=== PATIENT | female | born 1970 | race Caucasian/White ===

== ENCOUNTER 2020-10-06 12:03 | Inpatient (IN) | payer MEDICAID, SELFPAY ==
--- NOTE | ~2020-10-06 | CT_ITS ---
EXAMINATION: CT ANGIOGRAM HEAD CT ANGIOGRAM NECK CLINICAL INFORMATION: Lacunar infarct. COMPARISON: CT head from 10/06/2020. TECHNIQUE: Initial noncontrast explosive technician imaging of the head and neck was performed. Comparison is made with noncontrast head CT from earlier today. Test bolus sequences followed by intravenous administration 70 mL of Omnipaque 350. Helical imaging was performed in the axial plane from the aortic arch to the skull vertex. Delayed postcontrast imaging of the head was also performed. The data was processed at the certified cytotechnologist's workstation for generation of MIP sequences. Angled MIPs and volume rendered reformatted images were also generated at an offline 3D workstation. Stenoses are assessed in accordance with NASCET criteria unless otherwise indicated. This CT examination was performed using dose optimization techniques as appropriate, variously including the following: *Automated exposure control. *Adjustment of mA and/or kV according to patient size (this includes techniques or standardized protocols for targeted exams where dose is matched to indication/reason for exam; i.e. extremities or head). *Use of iterative reconstruction technique. DLP: 1509 mGy-cm FINDINGS: CT Head: There is no evidence of acute intracranial hemorrhage or edematous territorial infarction. Scattered hypoattenuation in the periventricular and deep white matter are consistent with moderate microangiopathy. Redemonstrated within the left greater than right lentiform nuclei and right caudate body. No new loss of moran-white matter differentiation. The ventricles are normal in size and configuration. No evidence for obstructive hydrocephalus. The sella turcica is expanded and partially empty. No additional abnormal mass effect or midline shift. No extra-axial fluid collections. No pathologic intra-axial enhancement or regional oligemia. No acute soft tissue or osseous abnormalities. Mild mucosal thickening of the paranasal sinuses. The mastoid air cells and middle ear cavities are clear The mastoid air cells and paranasal sinuses are clear. The maxillary teeth are absent. CT Neck: The thyroid gland and remaining cervical soft tissues are within normal limits. Reversal the normal cervical lordosis centered on C5. Moderate degenerative disc disease at C4-C5 and C5-C6. CT Upper Chest: The visualized lung apices and upper mediastinum are within normal limits. Neck CTA: Aortic Arch: Normal contour and caliber. Two vessel branching pattern of the arch with left common carotid artery arising from the brachiocephalic trunk. Great Vessel Origins: No significant stenosis of the branch origins. Right Common Carotid Artery: No focal stenosis or occlusion. Cervical Right Internal Carotid Artery: Mild calcific atherosclerotic disease of the carotid bulb and proximal internal carotid artery without flow-limiting stenosis. Left Common Carotid Artery: No focal stenosis or occlusion. Cervical Left Internal Carotid Artery: Mild calcific atherosclerotic disease of the carotid bulb and proximal internal carotid artery without flow-limiting stenosis. Retropharyngeal course. Cervical Right Vertebral Artery: No focal stenosis or occlusion. Cervical Left Vertebral Artery: Dominant. No focal stenosis or occlusion. Brain CTA: Intracranial Internal Carotid Arteries: Calcific atherosclerotic disease of the intracranial internal carotid arteries without occlusion or flow-limiting stenosis. No focal stenosis or occlusion. Right Anterior Cerebral Artery: Normal A1 segment. Normal opacification of the distal KIKO segments. Left Anterior Cerebral Artery: Normal A1 segment. Normal opacification of the distal KIKO segments. Anterior Communicating Artery: Normal. Right Middle Cerebral Artery: Normal M1 segment of the MCA without focal stenosis or occlusion. Normal arborization of the distal segments. Left Middle Cerebral Artery: Normal M1 segment of the MCA without focal stenosis or occlusion. Normal arborization of the distal segments. Right Vertebral Artery: Normal V4 segment. Normal opacification of the proximal segments of the posterior inferior cerebellar artery. Left Vertebral Artery: Normal V4 segment. Normal opacification of the proximal segments of the posterior inferior cerebellar artery. Basilar Artery: Normal without focal stenosis or occlusion. Normal appearance of the proximal superior cerebellar arteries. Right Posterior Cerebral Artery: Normal P1 segment. Moderate irregular narrowings of the P2 and P3 segments. Left Posterior Cerebral Artery: Mild irregular narrowings of the P1 segment. Moderate multifocal irregular narrowings of the P2 and P3 segments. Normal opacification of the superior sagittal, straight, transverse, and sigmoid sinuses. CT/CT angio head neck stroke IMPRESSION: 1. No evidence of acute intracranial hemorrhage or edematous territorial infarction. 2. Moderate underlying microangiopathy. Lacunar infarcts of the left greater than right lentiform nuclei and left caudate body remain age-indeterminate. 3. CTA of the head and neck without proximal occlusion. 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
--- NOTE | ~2020-10-06 | CT_ITS ---
EXAMINATION: CT HEAD WITHOUT CONTRAST CLINICAL INFORMATION: Dizziness for 3 days COMPARISON: None TECHNIQUE: Contiguous axial imaging was performed from the skull base to vertex without intravenous administration of contrast. This CT examination was performed using dose optimization techniques as appropriate, variously including the following: *Automated exposure control *Adjustment of mA and/or kV according to patient size (this includes techniques or standardized protocols for targeted exams where dose is matched to indication/reason for exam; i.e. extremities or head) *Use of iterative reconstruction technique DLP: 715 mGy-cm FINDINGS: There is no evidence of an extra-axial collection. There is no evidence of intra-axial or extra-axial hemorrhage. The ventricles and extra-axial CSF spaces are appropriate. There is nonspecific periventricular white matter disease. There is a left basal ganglia lacunar infarct in the lentiform nucleus that appears old axial image 27 series 2. There is a second left basal ganglia lobe lacunar infarct in the more inferior lentiform nucleus axial image 21 series 2 questionable for more recent infarct There is low-attenuation in the left caudate lobe questionable for a more recent lacunar infarct axial image 30 series 2. No mass or mass effect is seen. Review of bone windows is normal. Visualized paranasal sinuses, mastoid air cells and middle ears are clear. CT/CT head/brain wo con IMPRESSION: Left basal ganglia lacunar infarcts, one of which appears old. The other 2 may be more recent. This could be better assessed with brain MRI if clinically indicated. Nonspecific periventricular white matter disease.
--- NOTE | ~2020-10-06 | XR_ITS ---
EXAMINATION: XR CHEST CLINICAL INFORMATION: Cough x3 days. COMPARISON: None TECHNIQUE: 2 views of the chest were obtained. FINDINGS: No significant abnormality is noted involving the heart, lungs, mediastinum, bony thorax or soft tissues. XR/XR chest 2V IMPRESSION: Unremarkable chest x-ray.
[2020-10-06 12:12] VITALS: BP 141/86; PULSE 87; RESP 20; TEMP 36.6; O2SAT 96; BMI 43.9
[2020-10-06 12:38] LABS: COVID-19 Test Negative (Negative)
--- NOTE | 2020-10-06 13:07 | ED_ITS ---
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 Mode of arrival: ambulatory Limitations: no limitations Related Data Allergies Allergy/AdvReac Type Severity Reaction Status Date / Time No Known Allergies Allergy Unverified 01/07/20 19:37 [No Known Allergies*] [facility] Past Medical History Medical History (Updated 10/06/20 @ 12:14 by Rich Conrad) Asthma HTN (hypertension) Social History Social History Advance Directives: Yes Advance Directives Information Provided: Yes Advance Directives on File: No Patient : No Physical Exam Vital Signs: Vital Signs: Last Vital Signs Temp 97.8 F 10/06/20 12:12 Pulse 87 10/06/20 12:12 Resp 20 10/06/20 12:12 BP 141/86 H 10/06/20 12:12 Pulse Ox 96 10/06/20 12:12 Body Mass Index 43.9 MDM - Dizziness Lab Data Labs: Lab Results 10/06/20 Range/Units 12:15 COVID-19 (LUPE) Negative (Negative) COVID-19 Clin Com See Note
--- NOTE | 2020-10-06 13:39 | ECG_ITS ---
Test Reason : DIZZINESS Blood Pressure : / mmHG Vent. Rate : 077 BPM Atrial Rate : 077 BPM P-R Int : 162 ms QRS Dur : 098 ms QT Int : 404 ms P-R-T Axes : 040 003 066 degrees QTc Int : 457 ms Normal sinus rhythm Nonspecific T wave abnormality Abnormal ECG When compared with ECG of 31-MAR-2019 00:00, Nonspecific T wave abnormality now evident in Anterior leads Referred By: Estephania Morales Electronically Signed By:MACK MIRANDA
[2020-10-06 14:00] VITALS: PULSE 85; RESP 18; O2SAT 97
[2020-10-06 14:22] LABS: MANUAL DIFF FLAG NO
[2020-10-06 14:24] LABS: Basophils Absolute Auto 0.1 X10*3/uL (0.0-0.2); Basophils Percent Auto 0.7 % (0-2); Eosinophils Absolute Auto 0.1 X10*3/uL (0.0-0.4); Eosinophils Percent Auto 1.4 % (0-4); Hematocrit 37.8 % (37-47); Hemoglobin 12.3 g/dl (12.0-16.0); Imm Gran Abs Auto 0.02 X10*3/uL (0.00-0.03); Imm Gran Pct Auto 0.2 % (0.0-0.4); Lymphocytes Absolute Auto 2.5 X10*3/uL (1.2-4.9); Lymphocytes Percent Auto 30.4 % (20-40); Mean Corpuscular HGB Conc 32.5 g/dl (31.0-35.0); Mean Corpuscular Volume 86.1 fL (80-98); Mean Platelet Volume 10.3 fL (9.4-12.3); Monocytes Absolute Auto 0.6 X10*3/uL (0.1-1.2); Monocytes Percent Auto 7.4 % (2-11); Neutrophils Percent Auto 59.9 % (45-73); Platelet Count 253 X10*3/uL (160-400); Red Blood Count 4.39 X10*6/uL (4.20-5.50); Red Cell Distribution Width 14.2 % (11.0-16.0); White Blood Count 8.3 X10*3/uL (4.8-10.8)
[2020-10-06 14:32] LABS: INTERNATIONAL NORM RATIO 1.1 (0.9-1.1); Prothrombin Time 12.9 SEC (10.8-13.0)
[2020-10-06 14:37] LABS: D Dimer < 200 NG/ML
[2020-10-06 14:53] LABS: Alanine Aminotransferase 18 U/L (0-31); Alkaline Phosphatase 76 U/L (39-117); Anion Gap 11 (12-20); Aspartate Amino Transferase 14 U/L (5-31); Bilirubin Total 0.3 mg/dL (0.0-1.0); Blood Urea Nitrogen 19 mg/dL (9-16); Calcium 9.3 mg/dL (8.4-10.2); Carbon Dioxide 30 mmol/L (22-29); Chloride 104 mmol/L (96-108); Creatinine Clr Calc Pharmacy 95.2; Estimated Glomerular Filt Rate > 60; Glucose Random 114 mg/dL (60-115); Magnesium 1.9 mg/dL (1.6-2.6); Potassium 3.5 mmol/L (3.3-5.1); Sodium 141 mmol/L (135-145); Total Protein 7.4 g/dL (6.5-8.0)
[2020-10-06 14:58] LABS: B Type Natriuretic Peptide 15 pg/mL (<100); Troponin-I High Sensitivity 3.9 ng/L (<3.5-17.0)
--- NOTE | 2020-10-06 15:15 | ED.DIZZY ---
HPI - Dizziness General Chief Complaint: Dizziness Stated Complaint: bad cough, dizziness Time Seen by Provider: 10/06/20 13:07 Source: patient Mode of arrival: ambulatory Limitations: no limitations History of Present Illness HPI Narrative: 50-year-old female with a past medical history of hypertension asthma presenting to the ED with complaints of dizziness, dry cough, shortness of breath and dyspnea on exertion constantly for the past 3 days. Reports that she was seen at [facility] yesterday the day before and had a workup although did not have a CT scan of her brain and was discharged. Then she called her PCP and explain her symptoms to her PCP and her PCP told her to come to the emergency department again for further evaluation treatment again. Patient denies any other symptoms complaints or concerns at this time. MD elicited complaint: dizziness Onset (ago): day(s) (Three days) Timing: gradual onset and constant Severity: mild Description: lightheadedness History of similar symptoms: No Exacerbating factors: movement/ambulation Relieving factors: nothing Associated symptoms: denies other symptoms Related Data Allergies Allergy/AdvReac Type Severity Reaction Status Date / Time No Known Allergies Allergy Unverified 01/07/20 19:37 [No Known Allergies*] Review of Systems Review of Systems: Constitutional : No Fever, No Chills, No Night Sweats, No Fatigue, No Malaise ENT/Mouth : No Ear Pain, No Nasal Congestion, No Sinus Pain, No sore throat, No Rhinorrhea Eyes: No Eye Pain, No Swelling, No Redness, No Foreign Body, No Discharge, No Vision Changes Cardiovascular : Positive SOB/TIDWELL, No Chest Pain, No Orthopnea, No Palpitations Respiratory : Positive Cough, No Sputum, No Wheezing, No Dyspnea Gastrointestinal : No Nausea, No Vomiting, No Diarrhea, No Constipation, No abdominal Pain, No Hematochezia, No Melena Genitourinary : No Dysuria, No Urinary Frequency, No Urinary Incontinence, No Urgency, No Flank Pain Musculoskeletal : No joint pain, No Myalgias Skin : No lacerations Neuro : Positive Dizziness, No Focal weakness, no general weakness, No Numbness, No Paresthesias, No Loss of Consciousness, No Dizziness, No Headache Yes all other systems are reviewed and are negative [facility] Past Medical History Attestation statement: The following information was validated with the patient. Medical History Asthma HTN (hypertension) Social History Social History Advance Directives: Yes Advance Directives Information Provided: Yes Advance Directives on File: No Patient : No Physical Exam Vital Signs: Vital Signs: Last Vital Signs Temp 97.8 F 10/06/20 12:12 Pulse 87 10/06/20 12:12 Resp 20 10/06/20 12:12 BP 141/86 H 10/06/20 12:12 Pulse Ox 96 10/06/20 12:12 Body Mass Index 43.9 Vital signs have been reviewed as normal and appeared to be correct. Blood pressure normal. Heart rate normal. Respiration rate normal. Temperature normal. Oxygen saturation normal. Appearance: Alert. Oriented X3. No acute distress. Head: Normal external exam. Normocephalic. Atraumatic. Able to rotate head bilaterally. Eyes: PERRLA. EOMI. No nystagmus noted. Conjunctiva and sclera normal. Eyelids normal. Corneal reflex normal. ENT: EAC normal. TM's Normal. Hearing normal. Pharynx normal. Uvula midline. tongue midline. Moist mucous membranes. No trismus noted. No drooling noted. No muffled voice noted. No nystagmus noted. Neck: Normal inspection. Neck supple. FROM. No adenopathy. Trachea midline. Thyroid Normal. No meningeal signs. No neck mass noted. CVS: Normal heart rate and rhythm. Heart sound normal. No murmurs noted. Pulses normal throughout. Respiratory: No respiratory distress. Painless inspiration. Breath sounds normal. No wheezes/rales/rhonchi noted. Chest nontender. No accessory muscle usage noted or decreased air movement noted. Abdomen: Soft and nontender. Bowel sounds normal in all 4 quadrants. No distention noted. No organomegaly noted. No visible injury noted. Back: No CVA tenderness. Full range of motion noted. Skin: Skin warm and dry. Normal skin color. Normal skin turgor. No rashes/lesions/lacerations noted. Extremities: No lower extremity edema. Extremities exhibit normal range of motion. Extremities nontender. Able to shrug shoulders bilaterally and keep up against resistance. Neuro: Oriented X 3. No motor deficit. No sensory deficit. Reflexes normal. Moving all extremities. No focal motor deficits. Cranial nerves II-XI intact bilaterally. Facial strength normal. Normal cognition. Speech normal. Gait normal. Strength 5/5 throughout. No pronator drift. No tremor noted. No fasciculations noted. No rigidity noted. Muscle tone normal throughout. No asterixis noted. [id number] test normal. Heel to mcdonald test normal. Tandem gait normal. Does not sway with eyes open. Romberg test negative. Rapid alternating movement upper extremity normal. Rapid alternating movement lower extremity normal. Hand drop from overhead Misses face. NIHSS score 0. Course Course Course Narrative: 13:55pm - 50-year-old female presenting to the ED with complaints of dizziness, dry cough, shortness of breath and dyspnea on exertion constantly for the past 3 days. Plan: Labs, CT scan of brain, chest x-ray, EKG, orthostatic vitals then re-evaluate. Reevaluation(s) Reevaluation #1: - all labs within normal limits. D-dimer is negative. Troponin is negative. COVID swab negative. EKG is normal no acute ischemic changes are noted. - chest x-ray within normal limits no acute processes noted. - patient pending CT scan of brain Time: 16:43 [facility] - Dizziness Medical Records Attestation: I reviewed the patient's medical records. Lab Data Attestation: I reviewed the patient's lab results. Result diagrams: 10/06/20 14:17 10/06/20 14:17 Labs: Lab Results 10/06/20 10/06/20 10/06/20 Range/Units 12:15 14:17 14:17 WBC 8.3 (4.8-10.8) X10*3/uL RBC 4.39 (4.20-5.50) X10*6/uL Hgb 12.3 (12.0-16.0) g/dl Hct 37.8 (37-47) % MCV 86.1 (80-98) fL MCH 28.0 (27.0-33.0) pg MCHC 32.5 (31.0-35.0) g/dl RDW 14.2 (11.0-16.0) % Plt Count 253 (160-400) X10*3/uL MPV 10.3 (9.4-12.3) fL Immature Gran % (Auto) 0.2 (0.0-0.4) % Neut % (Auto) 59.9 (45-73) % Lymph % (Auto) 30.4 (20-40) % [place] % (Auto) 7.4 (2-11) % Eos % (Auto) 1.4 (0-4) % Baso % (Auto) 0.7 (0-2) % Lymph # (Auto) 2.5 (1.2-4.9) X10*3/uL [place] # (Auto) 0.6 (0.1-1.2) X10*3/uL Eos # (Auto) 0.1 (0.0-0.4) X10*3/uL Baso # (Auto) 0.1 (0.0-0.2) X10*3/uL Abs Immat Gran (auto) 0.02 (0.00-0.03) X10*3/uL Absolute Neuts (auto) 5.0 (2.0-8.3) X10*3/uL Absolute Nucleated RBC 0.000 (0.0-0.012) X10*3/uL Nucleated RBC % (auto) 0.0 (0.0-0.2) /100WBC PT (10.8-13.0) SEC INR (0.9-1.1) D-Dimer NG/ML Sodium (135-145) mmol/L Potassium (3.3-5.1) mmol/L Chloride (96-108) mmol/L Carbon Dioxide (22-29) mmol/L Anion Gap (12-20) BUN (9-16) mg/dL Creatinine (0.5-1.4) mg/dL Estim Creat Clear Calc Estimated GFR Random Glucose (60-115) mg/dL Calcium (8.4-10.2) mg/dL Magnesium 1.9 (1.6-2.6) mg/dL Total Bilirubin (0.0-1.0) mg/dL AST (5-31) U/L ALT (0-31) U/L Alkaline Phosphatase (39-117) U/L Troponin I High Sens (<3.5-17.0) ng/L B-Natriuretic Peptide (<100) pg/mL Total Protein (6.5-8.0) g/dL Albumin (3.5-5.0) g/dL COVID-19 (LUPE) Negative (Negative) COVID-19 Clin Com See Note 10/06/20 10/06/20 10/06/20 Range/Units 14:17 14:17 14:17 WBC (4.8-10.8) X10*3/uL RBC (4.20-5.50) X10*6/uL Hgb (12.0-16.0) g/dl Hct (37-47) % MCV (80-98) fL MCH (27.0-33.0) pg MCHC (31.0-35.0) g/dl RDW (11.0-16.0) % Plt Count (160-400) X10*3/uL MPV (9.4-12.3) fL Immature Gran % (Auto) (0.0-0.4) % Neut % (Auto) (45-73) % Lymph % (Auto) (20-40) % [place] % (Auto) (2-11) % Eos % (Auto) (0-4) % Baso % (Auto) (0-2) % Lymph # (Auto) (1.2-4.9) X10*3/uL [place] # (Auto) (0.1-1.2) X10*3/uL Eos # (Auto) (0.0-0.4) X10*3/uL Baso # (Auto) (0.0-0.2) X10*3/uL Abs Immat Gran (auto) (0.00-0.03) X10*3/uL Absolute Neuts (auto) (2.0-8.3) X10*3/uL Absolute Nucleated RBC (0.0-0.012) X10*3/uL Nucleated RBC % (auto) (0.0-0.2) /100WBC PT 12.9 (10.8-13.0) SEC INR 1.1 (0.9-1.1) D-Dimer < 200 NG/ML Sodium 141 (135-145) mmol/L Potassium 3.5 (3.3-5.1) mmol/L Chloride 104 (96-108) mmol/L Carbon Dioxide 30 H (22-29) mmol/L Anion Gap 11 L (12-20) BUN 19 H (9-16) mg/dL Creatinine 0.76 (0.5-1.4) mg/dL Estim Creat Clear Calc 95.2 Estimated GFR > 60 Random Glucose 114 (60-115) mg/dL Calcium 9.3 (8.4-10.2) mg/dL Magnesium (1.6-2.6) mg/dL Total Bilirubin 0.3 (0.0-1.0) mg/dL AST 14 (5-31) U/L ALT 18 (0-31) U/L Alkaline Phosphatase 76 (39-117) U/L Troponin I High Sens 3.9 (<3.5-17.0) ng/L B-Natriuretic Peptide 15 (<100) pg/mL Total Protein 7.4 (6.5-8.0) g/dL Albumin 4.0 (3.5-5.0) g/dL COVID-19 (LUPE) (Negative) COVID-19 Clin Com Imaging Data Chest x-ray: Attestation: I personally reviewed and interpreted this imaging study as follows: Radiologist's impression: FINDINGS: No significant abnormality is noted involving the heart, lungs, mediastinum, bony thorax or soft tissues. XR/XR chest 2V IMPRESSION: Unremarkable chest x-ray. ECG Data Attestation: I personally reviewed and interpreted this ECG as follows: ECG interpretation date: 10/06/20 ECG interpretation time: 14:34 Interpretation: Normal sinus rhythm and circulated 77 with a normal LA interval normal QRS duration and nonspecific T-wave abnormalities. No acute ischemic changes are noted. Similar compared to prior EKG 03/31/2019.
[2020-10-06 15:17] VITALS: BP 167/78; PULSE 78
[2020-10-06] MEDS: 0.9 % Sodium Chloride 1,000 ML 999 ML IVCONT (15:52)
--- NOTE | 2020-10-06 17:51 | ED.DIZZY ---
HPI - Dizziness General Chief Complaint: Dizziness Stated Complaint: bad cough, dizziness Time Seen by Provider: 10/06/20 13:07 Source: patient Mode of arrival: ambulatory Limitations: no limitations History of Present Illness Severity: mild Exacerbating factors: movement/ambulation Relieving factors: nothing Related Data Allergies Allergy/AdvReac Type Severity Reaction Status Date / Time No Known Allergies Allergy Unverified 01/07/20 19:37 [No Known Allergies*] [facility] Past Medical History Medical History Asthma HTN (hypertension) Social History Social History Advance Directives: Yes Advance Directives Information Provided: Yes Advance Directives on File: No Patient : No Physical Exam Vital Signs: Vital Signs: Last Vital Signs Temp 97.8 F 10/06/20 12:12 Pulse 85 10/06/20 14:00 Resp 18 10/06/20 14:00 BP 141/86 H 10/06/20 12:12 Pulse Ox 97 10/06/20 14:00 Body Mass Index 43.9 Course Course Course Narrative: Sign-out from Kathie ISAACS. Please refer to her note for full H&P. After reviewing the CT scan, she has had multiple lacunar infarcts, 1 is old however she has had the symptoms for 3 days, question of new infarcts order for MRI at this time. 6:[address] Gutierrez, he was updated that we were unable to obtain MRI due to patient's body habitus. Plan is to admit, neuro eval tomorrow. Patient admitted by hospitalist for lacunar infarct. CTA ordered per hospitalist request. Discussion with radiologist 1 CTA was completed. MDM - Dizziness Differential Diagnosis Differential diagnosis: Likely adverse reaction to drug, benign paroxysmal positional vertigo, orthostatic hypotension, vertebral basilar insufficiency, cerebrovascular accident and transient cerebral ischemia Medical Records Attestation: I reviewed the patient's medical records. Lab Data Attestation: I reviewed the patient's lab results. Result diagrams: 10/06/20 14:17 10/06/20 14:17 Labs: Lab Results 10/06/20 10/06/20 10/06/20 Range/Units 12:15 14:17 14:17 WBC 8.3 (4.8-10.8) X10*3/uL RBC 4.39 (4.20-5.50) X10*6/uL Hgb 12.3 (12.0-16.0) g/dl Hct 37.8 (37-47) % MCV 86.1 (80-98) fL MCH 28.0 (27.0-33.0) pg MCHC 32.5 (31.0-35.0) g/dl RDW 14.2 (11.0-16.0) % Plt Count 253 (160-400) X10*3/uL MPV 10.3 (9.4-12.3) fL Immature Gran % (Auto) 0.2 (0.0-0.4) % Neut % (Auto) 59.9 (45-73) % Lymph % (Auto) 30.4 (20-40) % [place] % (Auto) 7.4 (2-11) % Eos % (Auto) 1.4 (0-4) % Baso % (Auto) 0.7 (0-2) % Lymph # (Auto) 2.5 (1.2-4.9) X10*3/uL [place] # (Auto) 0.6 (0.1-1.2) X10*3/uL Eos # (Auto) 0.1 (0.0-0.4) X10*3/uL Baso # (Auto) 0.1 (0.0-0.2) X10*3/uL Abs Immat Gran (auto) 0.02 (0.00-0.03) X10*3/uL Absolute Neuts (auto) 5.0 (2.0-8.3) X10*3/uL Absolute Nucleated RBC 0.000 (0.0-0.012) X10*3/uL Nucleated RBC % (auto) 0.0 (0.0-0.2) /100WBC PT (10.8-13.0) SEC INR (0.9-1.1) D-Dimer NG/ML Sodium (135-145) mmol/L Potassium (3.3-5.1) mmol/L Chloride (96-108) mmol/L Carbon Dioxide (22-29) mmol/L Anion Gap (12-20) BUN (9-16) mg/dL Creatinine (0.5-1.4) mg/dL Estim Creat Clear Calc Estimated GFR Random Glucose (60-115) mg/dL Calcium (8.4-10.2) mg/dL Magnesium 1.9 (1.6-2.6) mg/dL Total Bilirubin (0.0-1.0) mg/dL AST (5-31) U/L ALT (0-31) U/L Alkaline Phosphatase (39-117) U/L Troponin I High Sens (<3.5-17.0) ng/L B-Natriuretic Peptide (<100) pg/mL Total Protein (6.5-8.0) g/dL Albumin (3.5-5.0) g/dL Urine Color Urine Appearance Urine pH (5.0-8.0) Ur Specific [place] (1.005-1.025) Urine Protein (NEG-TRACE) MG/DL Urine Glucose (UA) (NEG) MG/DL Urine Ketones (NEG) MG/DL Urine Blood (NEG) Urine Nitrite (NEG) Ur Leukocyte Esterase (NEG) COVID-19 (LUPE) Negative (Negative) COVID-19 Clin Com See Note 10/06/20 10/06/20 10/06/20 Range/Units 14:17 14:17 14:17 WBC (4.8-10.8) X10*3/uL RBC (4.20-5.50) X10*6/uL Hgb (12.0-16.0) g/dl Hct (37-47) % MCV (80-98) fL MCH (27.0-33.0) pg MCHC (31.0-35.0) g/dl RDW (11.0-16.0) % Plt Count (160-400) X10*3/uL MPV (9.4-12.3) fL Immature Gran % (Auto) (0.0-0.4) % Neut % (Auto) (45-73) % Lymph % (Auto) (20-40) % [place] % (Auto) (2-11) % Eos % (Auto) (0-4) % Baso % (Auto) (0-2) % Lymph # (Auto) (1.2-4.9) X10*3/uL [place] # (Auto) (0.1-1.2) X10*3/uL Eos # (Auto) (0.0-0.4) X10*3/uL Baso # (Auto) (0.0-0.2) X10*3/uL Abs Immat Gran (auto) (0.00-0.03) X10*3/uL Absolute Neuts (auto) (2.0-8.3) X10*3/uL Absolute Nucleated RBC (0.0-0.012) X10*3/uL Nucleated RBC % (auto) (0.0-0.2) /100WBC PT 12.9 (10.8-13.0) SEC INR 1.1 (0.9-1.1) D-Dimer < 200 NG/ML Sodium 141 (135-145) mmol/L Potassium 3.5 (3.3-5.1) mmol/L Chloride 104 (96-108) mmol/L Carbon Dioxide 30 H (22-29) mmol/L Anion Gap 11 L (12-20) BUN 19 H (9-16) mg/dL Creatinine 0.76 (0.5-1.4) mg/dL Estim Creat Clear Calc 95.2 Estimated GFR > 60 Random Glucose 114 (60-115) mg/dL Calcium 9.3 (8.4-10.2) mg/dL Magnesium (1.6-2.6) mg/dL Total Bilirubin 0.3 (0.0-1.0) mg/dL AST 14 (5-31) U/L ALT 18 (0-31) U/L Alkaline Phosphatase 76 (39-117) U/L Troponin I High Sens 3.9 (<3.5-17.0) ng/L B-Natriuretic Peptide 15 (<100) pg/mL Total Protein 7.4 (6.5-8.0) g/dL Albumin 4.0 (3.5-5.0) g/dL Urine Color Urine Appearance Urine pH (5.0-8.0) Ur Specific [place] (1.005-1.025) Urine Protein (NEG-TRACE) MG/DL Urine Glucose (UA) (NEG) MG/DL Urine Ketones (NEG) MG/DL Urine Blood (NEG) Urine Nitrite (NEG) Ur Leukocyte Esterase (NEG) COVID-19 (LUPE) (Negative) COVID-19 Clin Com 10/06/20 Range/Units 18:06 WBC (4.8-10.8) X10*3/uL RBC (4.20-5.50) X10*6/uL Hgb (12.0-16.0) g/dl Hct (37-47) % MCV (80-98) fL MCH (27.0-33.0) pg MCHC (31.0-35.0) g/dl RDW (11.0-16.0) % Plt Count (160-400) X10*3/uL MPV (9.4-12.3) fL Immature Gran % (Auto) (0.0-0.4) % Neut % (Auto) (45-73) % Lymph % (Auto) (20-40) % [place] % (Auto) (2-11) % Eos % (Auto) (0-4) % Baso % (Auto) (0-2) % Lymph # (Auto) (1.2-4.9) X10*3/uL [place] # (Auto) (0.1-1.2) X10*3/uL Eos # (Auto) (0.0-0.4) X10*3/uL Baso # (Auto) (0.0-0.2) X10*3/uL Abs Immat Gran (auto) (0.00-0.03) X10*3/uL Absolute Neuts (auto) (2.0-8.3) X10*3/uL Absolute Nucleated RBC (0.0-0.012) X10*3/uL Nucleated RBC % (auto) (0.0-0.2) /100WBC PT (10.8-13.0) SEC INR (0.9-1.1) D-Dimer NG/ML Sodium (135-145) mmol/L Potassium (3.3-5.1) mmol/L Chloride (96-108) mmol/L Carbon Dioxide (22-29) mmol/L Anion Gap (12-20) BUN (9-16) mg/dL Creatinine (0.5-1.4) mg/dL Estim Creat Clear Calc Estimated GFR Random Glucose (60-115) mg/dL Calcium (8.4-10.2) mg/dL Magnesium (1.6-2.6) mg/dL Total Bilirubin (0.0-1.0) mg/dL AST (5-31) U/L ALT (0-31) U/L Alkaline Phosphatase (39-117) U/L Troponin I High Sens (<3.5-17.0) ng/L B-Natriuretic Peptide (<100) pg/mL Total Protein (6.5-8.0) g/dL Albumin (3.5-5.0) g/dL Urine Color YELLOW Urine Appearance CLEAR Urine pH 5.5 (5.0-8.0) Ur Specific [place] >= 1.030 H (1.005-1.025) Urine Protein NEG (NEG-TRACE) MG/DL Urine Glucose (UA) NEG (NEG) MG/DL Urine Ketones NEG (NEG) MG/DL Urine Blood NEG (NEG) Urine Nitrite NEG (NEG) Ur Leukocyte Esterase NEG (NEG) COVID-19 (LUPE) (Negative) COVID-19 Clin Com Imaging Data MRI: Attestation: I personally reviewed and interpreted this imaging study as follows: Radiologist's impression: Patient unable to fit into the MRI machine. CT scan - head: Attestation: I personally reviewed and interpreted this imaging study as follows: Radiologist's impression: FINDINGS: There is no evidence of an extra-axial collection. There is no evidence of intra-axial or extra-axial hemorrhage. The ventricles and extra-axial CSF spaces are appropriate. There is nonspecific periventricular white matter disease. There is a left basal ganglia lacunar infarct in the lentiform nucleus that appears old axial image 27 series 2. There is a second left basal ganglia lobe lacunar infarct in the more inferior lentiform nucleus axial image 21 series 2 questionable for more recent infarct There is low-attenuation in the left caudate lobe questionable for a more recent lacunar infarct axial image 30 series 2. No mass or mass effect is seen. Review of bone windows is normal. Visualized paranasal sinuses, mastoid air cells and middle ears are clear. CT/CT head/brain wo con IMPRESSION: Left basal ganglia lacunar infarcts, one of which appears old. The other 2 may be more recent. This could be better assessed with brain MRI if clinically indicated. Nonspecific periventricular white matter disease. CT angio: Attestation: I personally reviewed and interpreted this imaging study as follows: Radiologist's impression: CT/CT angio head neck stroke IMPRESSION: 1. No evidence of acute intracranial hemorrhage or edematous territorial infarction. 2. Moderate underlying microangiopathy. Lacunar infarcts of the left greater than right lentiform nuclei and left caudate body remain age-indeterminate. 3. CTA of the head and neck without proximal occlusion. 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 Critical Care Time Critical Care Time Critical Care Time: Yes Total Critical Care Time: 45 Attestation: I have personally provided critical care time exclusive of time spent on separately billable procedures. Time includes review of laboratory data, radiology results, discussion with consultants, and monitoring for potential decompensation. Interventions were performed as documented. Discharge Plan Discharge Clinical Impression: Dizziness, Chest pain, Cough, Lacunar infarction Patient Disposition: Admitted As Inpatient Print Language: Fijian
[2020-10-06 18:19] LABS: Glucose Urine UA NEG (NEG); Leukocyte Esterase Urine NEG (NEG); Nitrite Urine NEG (NEG); PH 5.5 (5.0-8.0); Specific Gravity - Urine >= 1.030 (1.005-1.025); Urine Blood NEG (NEG); Urine Ketones NEG (NEG); Urine Protein NEG (NEG-TRACE)
[2020-10-06 18:26] LABS: Appearance Urine CLEAR; Color Urine YELLOW
[2020-10-06] MEDS: iohexoL 350 MG/ML 100 ML INFUS..BTL IV (19:44)
[2020-10-06 20:00] VITALS: BP 152/78; PULSE 87; RESP 18; TEMP 36.6; O2SAT 98
[2020-10-06 22:00] VITALS: BP 144/78; PULSE 78; RESP 18; O2SAT 98
--- NOTE | 2020-10-06 23:14 | P.HPHOSP_ITS ---
History of Present Illness Date of Service: 10/06/20 Chief Complaint: dizziness , sob This is a 50-year-old female with past medical history of asthma and hypertension who presents to the hospital with complaints of shortness of breath and dizziness that started about 3 days ago. Patient reports the dizziness st arted 3 days ago and it is all the time, not related to position. Denies any headache but does report that her vision seems of on the right eye. Patient is also coughing for the past few days, and short of breath. Patient reports chronic cough as well as dyspnea but has worsened over the past 2-3 days. Denies any fever, no chills, she is producing some phlegm with no chest pain, no abdominal pain nausea or vomiting, no diarrhea constipation, no urinary symptoms and no lower extremity edema. She denies any specific weakness in her limbs but reports numbness and tingling on the left lower and upper extremity as well as decreased are. Decreased vision on the right eye. Patient denies having any slurred speech or noticing any change in her speech, daughter at bedside confirms the same. No facial drooping. Patient vitals significant for temp of 97.8?, heart rate of 87, respiratory rate of 20, satting 90% on room air. 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 If so, by whom?: No Do you feel safe in your current relationship?: Yes Is there a partner from a previous relationship who is making you feel unsafe now?: No Are you made to feel afraid or neglected: No Advance Directives: Yes Advance Directives Information Provided: Yes Advance Directives on File: No Advance Directives Date on File: 10/07/20 Do you have thoughts of harming others: None Do you have a plan to hurt others: No Plan Recently lost weight without trying: No Patient : No Meds Allergies Allergy/AdvReac Type Severity Reaction Status Date / Time No Known Allergies Allergy Verified 10/07/20 00:58 [No Known Allergies*] Physical Exam Vital Signs and Narrative: Vital Signs: Last Vital Signs Temp 97.8 F 10/06/20 12:12 Pulse 85 10/06/20 14:00 Resp 18 10/06/20 14:00 BP 141/86 H 10/06/20 12:12 Pulse Ox 97 10/06/20 14:00 Body Mass Index 43.9 Const: General: cooperative and no acute distress Orientation/consciou sness: patient oriented x3 Eyes: Other: semi heminopnia of the right eye General: appearance normal, both eyes and all related structures Resp: Effort & Inspection: normal respiratory effort and able to speak in complete sentences Cardio: Rate: regular rate Rhythm: regular rhythm GI: Palpation (GI): Soft to palpation Auscultation: normal bowel sounds Skin: General skin exam: no rashes or lesions noted Neuro: Other: no focal neurological deficits, General: patient oriented x3 Cognition (Neuro): normal cognition Extrem: General: Yes normal to inspection and Yes no pedal edema Results Labs CBC and Chem 7: 10/07/20 00:40 10/07/20 00:40 Labs: Laboratory Results - last 24 hr 10/06/20 10/06/20 10/06/20 12:15 14:17 14:17 MCV 86.1 MCH 28.0 MCHC 32.5 RDW 14.2 Plt Count 253 MPV 10.3 Immature Gran % (Auto) 0.2 Neut % (Auto) 59.9 Lymph % (Auto) 30.4 Wheeler % (Auto) 7.4 Eos % (Auto) 1.4 Baso % (Auto) 0.7 Lymph # (Auto) 2.5 Wheeler # (Auto) 0.6 Eos # (Auto) 0.1 Baso # (Auto) 0.1 Abs Immat Gran (auto) 0.02 Absolute Neuts (auto) 5.0 Absolute Nucleated RBC 0.000 Nucleated RBC % (auto) 0.0 PT INR D-Dimer Anion Gap Estim Creat Clear Calc Estimated GFR Random Glucose Calcium Magnesium 1.9 Total Bilirubin AST ALT Alkaline Phosphatase Troponin I High Sens B-Natriuretic Peptide Total Protein Albumin Urine Color Urine Appearance Urine pH Ur Specific [place] Urine Protein Urine Glucose (UA) Urine Ketones Urine Blood Urine Nitrite Ur Leukocyte Esterase COVID-19 (LUPE) Negative COVID-19 Clin Com See Note 10/06/20 10/06/20 10/06/20 14:17 14:17 14:17 MCV MCH MCHC RDW Plt Count MPV Immature Gran % (Auto) Neut % (Auto) Lymph % (Auto) Wheeler % (Auto) Eos % (Auto) Baso % (Auto) Lymph # (Auto) Wheeler # (Auto) Eos # (Auto) Baso # (Auto) Abs Immat Gran (auto) Absolute Neuts (auto) Absolute Nucleated RBC Nucleated RBC % (auto) PT 12.9 INR 1.1 D-Dimer < 200 Anion Gap 11 L Estim Creat Clear Calc 95.2 Estimated GFR > 60 Random Glucose 114 Calcium 9.3 Magnesium Total Bilirubin 0.3 AST 14 ALT 18 Alkaline Phosphatase 76 Troponin I High Sens 3.9 B-Natriuretic Peptide 15 Total Protein 7.4 Albumin 4.0 Urine Color Urine Appearance Urine pH Ur Specific [place] Urine Protein Urine Glucose (UA) Urine Ketones Urine Blood Urine Nitrite Ur Leukocyte Esterase COVID-19 (LUPE) [employer] Com 10/06/20 18:06 MCV MCH MCHC RDW Plt Count MPV Immature Gran % (Auto) Neut % (Auto) Lymph % (Auto) Wheeler % (Auto) Eos % (Auto) Baso % (Auto) Lymph # (Auto) Wheeler # (Auto) Eos # (Auto) Baso # (Auto) Abs Immat Gran (auto) Absolute Neuts (auto) Absolute Nucleated RBC Nucleated RBC % (auto) PT INR D-Dimer Anion Gap Estim Creat Clear Calc Estimated GFR Random Glucose Calcium Magnesium Total Bilirubin AST ALT Alkaline Phosphatase Troponin I High Sens B-Natriuretic Peptide Total Protein Albumin Urine Color YELLOW Urine Appearance CLEAR Urine pH 5.5 Ur Specific [place] >= 1.030 H Urine Protein NEG Urine Glucose (UA) NEG Urine Ketones NEG Urine Blood NEG Urine Nitrite NEG Ur Leukocyte Esterase NEG COVID-19 (LUPE) COVID-19 Clin Com Imaging Radiologist's Impressions: Impressions Chest X-Ray 10/06/20 12:23 IMPRESSION: Unremarkable chest x-ray. Head CT 10/06/20 15:16 IMPRESSION: Left basal ganglia lacunar infarcts, one of which appears old. The other 2 may be more recent. This could be better assessed with brain MRI if clinically indicated. Nonspecific periventricular white matter disease. Head/Neck CTA 10/06/20 19:13 IMPRESSION: 1. No evidence of acute intracranial hemorrhage or edematous territorial infarction. 2. Moderate underlying microangiopathy. Lacunar infarcts of the left greater than right lentiform nuclei and left caudate body remain age-indeterminate. 3. CTA of the head and neck without proximal occlusion. 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 - at this time will start her on aspirin, high-dose statin - neurology consult - Stroke Education # asthma exacerbation - will start her on Solu-Medrol, breathing treatments - currently no hypoxia, not requiring any oxygen - monitor symptoms # dizziness - most likely secondary to acute stroke - PT O2 consult # HTN - will resume her home meds once pharmacy reviews them DVT prophylaxis:lovenox Quality Stroke Does the patient have a stroke diagnosis?: Yes Reason for No Anti-thrombotic by Day Two: N/A - Med Ordered VTE Prior VTE?: No VTE Risk Level:: Medical - moderate - high VTE Device Contraindication: Treatment Not Indicated VTE Drug Contraindication: N/A - Med Ordered
[2020-10-07] VITALS (12 sets, daily range): BP systolic 143–188; BP diastolic 68–102; PULSE 73–96; RESP 17–18; TEMP 36.4–36.8; O2SAT 91–97
--- NOTE | 2020-10-07 00:06 | PC.NURSE ---
Attempted to call [facility] to give RN to RN report. RN unavailable, awaiting call back.
[2020-10-07 00:55] LABS: MANUAL DIFF FLAG NO
[2020-10-07 00:58] LABS: Basophils Absolute Auto 0.1 X10*3/uL (0.0-0.2); Basophils Percent Auto 0.9 % (0-2); Eosinophils Absolute Auto 0.1 X10*3/uL (0.0-0.4); Eosinophils Percent Auto 1.3 % (0-4); Hematocrit 37.5 % (37-47); Hemoglobin 12.3 g/dl (12.0-16.0); Imm Gran Abs Auto 0.02 X10*3/uL (0.00-0.03); Imm Gran Pct Auto 0.3 % (0.0-0.4); Lymphocytes Absolute Auto 2.5 X10*3/uL (1.2-4.9); Lymphocytes Percent Auto 32.6 % (20-40); Mean Corpuscular HGB Conc 32.8 g/dl (31.0-35.0); Mean Corpuscular Hemoglobin 27.9 pg (27.0-33.0); Mean Platelet Volume 10.3 fL (9.4-12.3); Monocytes Absolute Auto 0.6 X10*3/uL (0.1-1.2); Monocytes Percent Auto 7.1 % (2-11); Neutrophils Absolute Auto 4.5 X10*3/uL (2.0-8.3); Neutrophils Percent Auto 57.8 % (45-73); Platelet Count 251 X10*3/uL (160-400); Red Blood Count 4.41 X10*6/uL (4.20-5.50); Red Cell Distribution Width 14.1 % (11.0-16.0); White Blood Count 7.8 X10*3/uL (4.8-10.8)
[2020-10-07] MEDS: methylPREDNISolone Sod Succ 40 MG/ML VIAL IVPUSH ×3 (01:02→22:06)
[2020-10-07 01:26] LABS: Anion Gap 11 (12-20); Blood Urea Nitrogen 15 mg/dL (9-16); Calcium 8.3 mg/dL (8.4-10.2); Carbon Dioxide 26 mmol/L (22-29); Chloride 106 mmol/L (96-108); Creatinine Clr Calc Pharmacy 96.5; Estimated Glomerular Filt Rate > 60; Glucose Random 119 mg/dL (60-115); Potassium 3.3 mmol/L (3.3-5.1); Sodium 140 mmol/L (135-145)
[2020-10-07 07:03] LABS: Cholesterol 204 mg/dL; HDL Cholesterol 32 mg/dL; LDL Cholesterol Calculated 148 mg/dl; Triglycerides 121 mg/dL
[2020-10-07] MEDS: Albuterol/Iprat 2.5/0.5MG 3 ML AMPUL.NEB INHALE ×3 (07:50→19:28)
[2020-10-07] MEDS: Enoxaparin Sodium 40 MG/0.4 ML SYRINGE SUBCUT (09:20)
[2020-10-07] MEDS: Atorvastatin Calcium 40 MG TABLET PO (09:21)
[2020-10-07] MEDS: Aspirin Enteric Coated 81 MG TABLET.DR PO (09:21)
--- NOTE | 2020-10-07 10:10 | MHC.CM.PN ---
CM met with Patient and spoke to her over the phone with a Corporate Financial Analyst at [phone]. Patient lives in an apartment with her and she is functionally independent and working. Patient's goal is to return home/no services and CM has initiated and will follow for dc planning. PCP is from [facility].
--- NOTE | 2020-10-07 11:29 | MHC.STROKE ---
I MET WITH THE PATIENT AND MASTER PLUMBER PRESENT. WE REVIEWED HER SYMPTOMS AND ONSET. SHE CAN'T RECALL EXACTLY WHEN BUT SHE BECAME VERY SOB ON 10/05/20 0300 AND WENT TO THE HOSPITAL. SHE KNEW SOMETHING WAS WRONG. SYMPTOMS DID NOT IMPROVE SO SHE CAME TO [facility] [place] DONE WHICH REVEALED MULTIPLE LACUNAR STROKES, SUBACUTE AND OLD. SHE DOES RECALL THAT IN THE PAST SHE WAS SPEAKING WITH A COWORKER AND HER SPEECH WAS NOT COMING OUT CLEAR, SHE WAS SAYING THE INCORRECT WORDS. CURRENTLY HER SPEECH IS FINE, SHE C/O BLURRED VISION, NUMBNESS IN HER LEGS, SLIGHT UNSTEADY GAIT. WE DISCUSSED HER RISK FACTORS, OBESITY, HIGH BLOOD PRESSURE, HIGH CHOLESTEROL, AND PRIOR STROKE. I DISCUSSED WHY SHE WOULD NEED TO TAKE MEDICATIONS ASPIRIN, STATIN, BP MEDS AND HOW IMPORTANT THIS IS. SHE UNDERSTANDS AND I ANSWERED HER QUESTIONS, SHE WAS SEEN BY PT/OT AND SHE WOULD BENEFIT FROM OP REHAB OR HOME REHAB. I WILL CONTINUE TO FOLLOW, NEUROLOGY CONSULT PENDING.
--- NOTE | 2020-10-07 11:34 | P.CONGS_ITS ---
History of Present Illness Consult details Consult date: 10/07/20 Reason for consult: other (Stroke) Narrative: 55-year-old female presents to hospital for shortness of breath and dizziness. Some of it was felt to be an exacerbation of her asthma but upon workup was found to have subacute and chronic strokes. She underwent CT angiogram and now presents to me for vascular evaluation. Of note she has no lateralizing signs or symptoms at the current time. Review of Systems Review of Systems: Yes all other systems are reviewed and are negative Constitutional: Constitutional: Reports no additional constitutional complaints ENT: Reports Normal hearing present Cardiovascular: Cardiovascular: Denies chest pain, Denies chest pain at rest, Denies chest pain with activity and Denies pedal edema Respiratory: Respiratory: Denies cough Gastrointestinal: Gastrointestinal: Denies abdominal pain Musculoskeletal: Musculoskeletal: Denies abnormal gait, Denies muscle cramps and Denies radiating pain into limb Integumentary/Breasts: Skin/Breast: Denies skin ulcer and Denies wounds Neurologic: Reports Normal hearing present and Denies abnormal gait Psychiatric: Psychiatric: Reports no additional psychiatric complaints [facility] Past Medical History Medical History Asthma HTN (hypertension) Social History Social History Household Members: Spouse Housing: Apartment Do you presently have visiting nurse or other home services: No Patient Tobacco Use Status: Never used Tobacco Use of substances other than those prescribed or required for medical reasons: No Currently Displaying Signs/Symptoms of Drug Intoxication Withdrawal: No Have you been hit, kicked, punched, or otherwise hurt by someone within the past year? If so, by whom?: No Do you feel safe in your current relationship?: Yes Is there a partner from a previous relationship who is making you feel unsafe now?: No Are you made to feel afraid or neglected: No Advance Directives: Yes Advance Directives Information Provided: Yes Advance Directives on File: No Advance Directives Date on File: 10/07/20 Do you have thoughts of harming others: None Do you have a plan to hurt others: No Plan Recently lost weight without trying: No Patient : No service: No Current occupational status: employed Meds Allergies Allergy/AdvReac Type Severity Reaction Status Date / Time No Known Allergies Allergy Verified 10/07/20 00:58 [No Known Allergies*] Active Medications: Current Medications Generic Name Dose Route Start Last Admin Trade Name Freq PRN Reason Stop Dose Admin Acetaminophen 650 mg 10/06/20 23:52 Acetaminophen 325 Mg Tablet PO Q6H PRN Pain, Mild (Pain Scale 1-3) Albuterol/Ipratropium 3 ml 10/07/20 08:00 10/07/20 11:18 Albuterol/Iprat 2.5/0.5mg 3 Ml Ampul.Neb INHALE 3 ml RQ4H WHILE AWAKE JAQUELIN Administration Albuterol/Ipratropium 3 ml 10/06/20 23:52 Albuterol/Iprat 2.5/0.5mg 3 Ml Ampul.Neb INHALE RQ4H PRN Shortness of Breath/Wheezing Aspirin 81 mg 10/07/20 09:00 10/07/20 09:21 Aspirin Enteric Coated 81 Mg Tablet.Dr PO 81 mg DAILY JAQUELIN Administration Atorvastatin Calcium 40 mg 10/07/20 09:00 10/07/20 09:21 Atorvastatin Calcium 40 Mg Tablet PO 40 mg DAILY JAQUELIN Administration Docusate Sodium 100 mg 10/06/20 23:52 Docusate Sodium 100 Mg Capsule PO DAILY PRN Constipation Enoxaparin Sodium 40 mg 10/07/20 07:00 10/07/20 09:20 Enoxaparin Sodium 40 Mg/0.4 Ml Syringe SUBCUT 40 mg Q24H JAQUELIN Administration Methylprednisolone Sodium Succinate 40 mg 10/06/20 23:52 10/07/20 01:02 Methylprednisolone Sod Succ 40 Mg/Ml Vial IVPUSH 40 mg Q12H JAQUELIN Administration Ondansetron HCl 4 mg 10/06/20 23:52 Ondansetron Hcl 4 Mg/2 Ml Vial IVPUSH Q8H PRN Nausea and Vomiting Physical Exam Vital Signs: Vital Signs: Last Vital Signs Temp 98.2 F 10/07/20 11:10 Pulse 86 10/07/20 11:19 Resp 18 10/07/20 11:10 BP 146/78 H 10/07/20 11:10 Pulse Ox 96 10/07/20 11:10 Body Mass Index 43.9 Const: General: cooperative, healthy appearing and comfortable Orientation/consciousness: oriented to person, oriented to place and oriented to time HENMT: Head: Yes normal to inspection Neck: Neck: Yes normal visual inspection Carotids: no bruits Chest: Chest palpation & inspection: normal inspection of the chest Resp: Effort & Inspection: normal respiratory effort and able to speak in complete sentences Auscultation: clear to auscultation bilaterally, no crackles, no rales, no rhonchi and no wheezes Cardio: Rate: regular rate Rhythm: regular rhythm Heart sounds: S1 normal heart sound present and S2 normal heart sound present Bruits: no carotid bruits Peripheral pulses: Peripheral pulses 2+ throughout GI: Inspection: Yes normal to inspection Skin: Wounds: no wounds Hair: normal Neuro: General: oriented to person, oriented to place and oriented to time Cranial nerves: Yes CN's II-XII intact bilaterally and Yes Normal hearing present Cognition (Neuro): normal cognition Motor exam (neuro): 5/5 motor strength present throughout Extrem: Other: venous exam: No significant superficial varicosities or spider telangiectasias, minimal edema General: No clubbing, No cyanosis and No edema Psych: Appearance: grossly normal Mental Status: mental status grossly normal Speech and movement: Normal speech and movement present Results Labs Result diagrams: 10/07/20 00:40 10/07/20 00:40 Labs: Abnormal lab results 10/06/20 10/06/20 10/07/20 Range/Units 14:17 18:06 00:40 Carbon Dioxide 30 H (22-29) mmol/L Anion Gap 11 L 11 L (12-20) BUN 19 H (9-16) mg/dL Random Glucose 119 H (60-115) mg/dL Calcium 8.3 L D (8.4-10.2) mg/dL Ur Specific [place] >= 1.030 H (1.005-1.025) Short CBC 10/06/20 10/07/20 Range/Units 14:17 00:40 WBC 8.3 7.8 (4.8-10.8) X10*3/uL Hgb 12.3 12.3 (12.0-16.0) g/dl Hct 37.8 37.5 (37-47) % Plt Count 253 251 (160-400) X10*3/uL BMP 10/06/20 10/07/20 14:17 00:40 Sodium 141 140 Potassium 3.5 3.3 Chloride 104 106 Carbon Dioxide 30 H 26 BUN 19 H 15 Creatinine 0.76 0.75 Calcium 9.3 8.3 L D Liver Function 10/06/20 Range/Units 14:17 Total Bilirubin 0.3 (0.0-1.0) mg/dL AST 14 (5-31) U/L ALT 18 (0-31) U/L Alkaline Phosphatase 76 (39-117) U/L Albumin 4.0 (3.5-5.0) g/dL Urine 10/06/20 Range/Units 18:06 Urine Color YELLOW Urine Appearance CLEAR Urine pH 5.5 (5.0-8.0) Ur Specific [place] >= 1.030 H (1.005-1.025) Urine Protein NEG (NEG-TRACE) MG/DL Urine Glucose (UA) NEG (NEG) MG/DL All other labs normal. Imaging Additional studies: 1. No evidence of acute intracranial hemorrhage or edematous territorial infarction. 2. Moderate underlying microangiopathy. Lacunar infarcts of the left greater than right lentiform nuclei and left caudate body remain age-indeterminate. 3. CTA of the head and neck without proximal occlusion. 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 Assessment and Plan (1) Lacunar infarction: Status: Acute Unclear etiology of stroke. There is some intracranial pathology. This may if persists need to be seen by a neurosurgeon. There is no evidence of any extracranial carotid disease. Would recommend continued resumption of medical management. She will follow up with us on an as-needed basis. Thank you for al lowing us to assist in her care. There are any questions or concerns please do not hesitate to contact us. Procedures Date of Service Date of Service: 10/07/20
--- NOTE | 2020-10-07 12:15 | HE.PHANOTE ---
MED REC COMPLETE, NO ISSUES
--- NOTE | 2020-10-07 12:50 | PM.NEUROCN ---
History of Present Illness Data of Consult Service Date: 10/07/20 Primary Care Provider: Unknown Physician 50 years old obese woman with past medical history of hypertension came to hospital with 3 days history of nonspecific dizziness. ER workup included a CT scan of brain that reveals stroke-like lesions and she was admitted for further evaluation. When I saw her she was comfortable with no sign of distress. There is no complaint of headache or any focal weakness or speech language difficulty. There was no nausea vomiting Review of Systems Review of Systems: No recent cold or flu-like illness. PMFSH Past Medical History Medical History Asthma HTN (hypertension) Social History Social History Household Members: Spouse Housing: Apartment Do you presently have visiting nurse or other home services: No Patient Tobacco Use Status: Never used Tobacco Use of substances other than those prescribed or required for medical reasons: No Currently Displaying Signs/Symptoms of Drug Intoxication Withdrawal: No Have you been hit, kicked, punched, or otherwise hurt by someone within the past year? If so, by whom?: No Do you feel safe in your current relationship?: Yes Is there a partner from a previous relationship who is making you feel unsafe now?: No Are you made to feel afraid or neglected: No Advance Directives: Yes Advance Directives Information Provided: Yes Advance Directives on File: No Advance Directives Date on File: 10/07/20 Do you have thoughts of harming others: None Do you have a plan to hurt others: No Plan Recently lost weight without trying: No Patient : No service: No Current occupational status: employed Meds Allergies Allergy/AdvReac Type Severity Reaction Status Date / Time No Known Allergies Allergy Verified 10/07/20 00:58 [No Known Allergies*] Active Medications: Current Medications Generic Name Dose Route Start Last Admin Trade Name Freq PRN Reason Stop Dose Admin Acetaminophen 650 mg 10/06/20 23:52 Acetaminophen 325 Mg Tablet PO Q6H PRN Pain, Mild (Pain Scale 1-3) Albuterol/Ipratropium 3 ml 10/07/20 08:00 10/07/20 11:18 Albuterol/Iprat 2.5/0.5mg 3 Ml Ampul.Neb INHALE 3 ml RQ4H WHILE AWAKE JAQUELIN Administration Albuterol/Ipratropium 3 ml 10/06/20 23:52 Albuterol/Iprat 2.5/0.5mg 3 Ml Ampul.Neb INHALE RQ4H PRN Shortness of Breath/Wheezing Aspirin 81 mg 10/07/20 09:00 10/07/20 09:21 Aspirin Enteric Coated 81 Mg Tablet. PO 81 mg DAILY JAQUELIN Administration Atorvastatin Calcium 40 mg 10/07/20 09:00 10/07/20 09:21 Atorvastatin Calcium 40 Mg Tablet PO 40 mg DAILY JAQUELIN Administration Docusate Sodium 100 mg 10/06/20 23:52 Docusate Sodium 100 Mg Capsule PO DAILY PRN Constipation Enoxaparin Sodium 40 mg 10/07/20 07:00 10/07/20 09:20 Enoxaparin Sodium 40 Mg/0.4 Ml Syringe SUBCUT 40 mg Q24H JAQUELIN Administration Methylprednisolone Sodium Succinate 40 mg 10/06/20 23:52 10/07/20 01:02 Methylprednisolone Sod Succ 40 Mg/Ml Vial IVPUSH 40 mg Q12H JAQUELIN Administration Ondansetron HCl 4 mg 10/06/20 23:52 Ondansetron Hcl 4 Mg/2 Ml Vial IVPUSH Q8H PRN Nausea and Vomiting Home Medications Medication Instructions Recorded Confirmed Last Taken Type acetaminophen 650 mg PO Q8H PRN 10/07/20 10/07/20 Unknown History albuterol sulfate [ProAir HFA] 2 puff INHALATION Q4H PRN 10/07/20 10/07/20 Unknown History amlodipine 10 mg PO BEDTIME 10/07/20 10/07/20 Unknown History chlorthalidone 25 mg PO DAILY 10/07/20 10/07/20 Unknown History ibuprofen 600 mg PO TID PRN 10/07/20 10/07/20 Unknown History metoprolol succinate 25 mg PO DAILY 10/07/20 10/07/20 Unknown History tiotropium bromide [Spiriva with 1 cap INHALATION DAILY 10/07/20 10/07/20 Unknown History HandiHaler] Physical Exam Vital Signs: Vital Signs: Last Vital Signs Temp 98.2 F 10/07/20 11:10 Pulse 86 10/07/20 11:19 Resp 18 10/07/20 11:10 BP 146/78 H 10/07/20 11:10 Pulse Ox 96 10/07/20 11:10 Body Mass Index 43.9 She was alert and awake with normal spontaneity of speech fluency comprehension and affect. Pupils were equal and reactive to light and extraocular muscles were intact. Visual granado are full to confrontation. Face was symmetrical. There was no pronator drift. Eowgod-hv-aroa testing was normal. Deep tendon reflexes were absent with flexor plantars. Results Labs CBC & Chem 7: 10/07/20 00:40 10/07/20 00:40 Labs: Short CBC 10/06/20 10/07/20 Range/Units 14:17 00:40 WBC 8.3 7.8 (4.8-10.8) X10*3/uL Hgb 12.3 12.3 (12.0-16.0) g/dl Hct 37.8 37.5 (37-47) % Plt Count 253 251 (160-400) X10*3/uL BMP 10/06/20 10/07/20 14:17 00:40 Sodium 141 140 Potassium 3.5 3.3 Chloride 104 106 Carbon Dioxide 30 H 26 BUN 19 H 15 Creatinine 0.76 0.75 Calcium 9.3 8.3 L D Liver Function 10/06/20 Range/Units 14:17 Total Bilirubin 0.3 (0.0-1.0) mg/dL AST 14 (5-31) U/L ALT 18 (0-31) U/L Alkaline Phosphatase 76 (39-117) U/L Albumin 4.0 (3.5-5.0) g/dL Urine 10/06/20 Range/Units 18:06 Urine Color YELLOW Urine Appearance CLEAR Urine pH 5.5 (5.0-8.0) Ur Specific [place] >= 1.030 H (1.005-1.025) Urine Protein NEG (NEG-TRACE) MG/DL Urine Glucose (UA) NEG (NEG) MG/DL Her CT scan of brain revealed bilateral hypodense signal abnormalities that could be from microvascular disease but could also result from demyelinating disease. CTA did not reveal any significant stenosis. Assessment and Plan (1) Dizziness: Status: Acute 50 years old woman with nonspecific dizziness. She also has hypertension and CT scan of brain reveal hypodense signal abnormalities that could be hypertensive cerebral disease but some element of that was suggestive of an alternate diagnosis such as demyelinating disease. Unfortunately she could not be fit in our MRI machine. I recommend outpatient MRI of brain to rule out demyelinating disease. Otherwise anti-platelet agent blood pressure control and statin should continue. Procedures Date of Service Date of Service: 10/07/20
--- NOTE | 2020-10-07 13:32 | MHC.CM.PN ---
CM has confirmed with Patient via [employer], that she lives in [facility]. Patient has [facility] and a PCP in [facility]. A referral has been made to [facility], out of [place]. CM will follow.
--- NOTE | 2020-10-07 14:55 | HO.PM.IMPN ---
Subjective Subjective Date of Service: 10/07/20 Interval History: Patient complaining of blurred vision right eye, complaining of persistent numbness left side upper and lower extremity, denies headache denies speech impairment. 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 Neck supple no JVD. CVS regular rate rhythm, Respiratory lungs clear to auscultation, no respiratory distress, no wheeze, no rhonchi. Gastrointestinal abdomen soft, nontender, bowel sounds audible, no guarding , no rigidity. Extremities no edema. Neuro speech clear, cranial nerve 2-12 intact, left lower extremity mild decreased strength, plantar downgoing Skin no rash Objective Data Current Medications Generic Name Dose Route Start Last Admin Trade Name Freq PRN Reason Stop Dose Admin Acetaminophen 650 mg 10/06/20 23:52 Acetaminophen 325 Mg Tablet PO Q6H PRN Pain, Mild (Pain Scale 1-3) Albuterol/Ipratropium 3 ml 10/07/20 08:00 10/07/20 11:18 Albuterol/Iprat 2.5/0.5mg 3 Ml Ampul.Neb INHALE 3 ml RQ4H WHILE AWAKE JAQUELIN Administration Albuterol/Ipratropium 3 ml 10/06/20 23:52 Albuterol/Iprat 2.5/0.5mg 3 Ml Ampul.Neb INHALE RQ4H PRN Shortness of Breath/Wheezing Aspirin 81 mg 10/07/20 09:00 10/07/20 09:21 Aspirin Enteric Coated 81 Mg Tablet. PO 81 mg DAILY JAQUELIN Administration Atorvastatin Calcium 40 mg 10/07/20 09:00 10/07/20 09:21 Atorvastatin Calcium 40 Mg Tablet PO 40 mg DAILY JAQUELIN Administration Docusate Sodium 100 mg 10/06/20 23:52 Docusate Sodium 100 Mg Capsule PO DAILY PRN Constipation Enoxaparin Sodium 40 mg 10/07/20 07:00 10/07/20 09:20 Enoxaparin Sodium 40 Mg/0.4 Ml Syringe SUBCUT 40 mg Q24H JAQUELIN Administration Methylprednisolone Sodium Succinate 40 mg 10/06/20 23:52 10/07/20 13:43 Methylprednisolone Sod Succ 40 Mg/Ml Vial IVPUSH 40 mg Q12H JAQUELIN Administration Ondansetron HCl 4 mg 10/06/20 23:52 Ondansetron Hcl 4 Mg/2 Ml Vial IVPUSH Q8H PRN Nausea and Vomiting Labs CBC & Chem 7: 10/07/20 00:40 10/07/20 00:40 Labs: Laboratory Results - last 24 hr 10/06/20 10/06/20 10/07/20 14:17 18:06 00:40 WBC RBC Hgb Hct MCV MCH MCHC RDW Plt Count MPV Immature Gran % (Auto) Neut % (Auto) Lymph % (Auto) Rankin % (Auto) Eos % (Auto) Baso % (Auto) Lymph # (Auto) Rankin # (Auto) Eos # (Auto) Baso # (Auto) Abs Immat Gran (auto) Absolute Neuts (auto) Absolute Nucleated RBC Nucleated RBC % (auto) Sodium 140 Potassium 3.3 Chloride 106 Carbon Dioxide 26 Anion Gap 11 L BUN 15 Creatinine 0.75 Estim Creat Clear Calc 96.5 Estimated GFR > 60 Random Glucose 119 H Calcium 8.3 L D Troponin I High Sens 3.9 B-Natriuretic Peptide 15 Triglycerides Cholesterol LDL Cholesterol, Calc HDL Cholesterol Urine Color YELLOW Urine Appearance CLEAR Urine pH 5.5 Ur Specific [place] >= 1.030 H Urine Protein NEG Urine Glucose (UA) NEG Urine Ketones NEG Urine Blood NEG Urine Nitrite NEG Ur Leukocyte Esterase NEG 10/07/20 10/07/20 00:40 05:49 WBC 7.8 RBC 4.41 Hgb 12.3 Hct 37.5 MCV 85.0 MCH 27.9 MCHC 32.8 RDW 14.1 Plt Count 251 MPV 10.3 Immature Gran % (Auto) 0.3 Neut % (Auto) 57.8 Lymph % (Auto) 32.6 Rankin % (Auto) 7.1 Eos % (Auto) 1.3 Baso % (Auto) 0.9 Lymph # (Auto) 2.5 Rankin # (Auto) 0.6 Eos # (Auto) 0.1 Baso # (Auto) 0.1 Abs Immat Gran (auto) 0.02 Absolute Neuts (auto) 4.5 Absolute Nucleated RBC 0.000 Nucleated RBC % (auto) 0.0 Sodium Potassium Chloride Carbon Dioxide Anion Gap BUN Creatinine Estim Creat Clear Calc Estimated GFR Random Glucose Calcium Troponin I High Sens B-Natriuretic Peptide Triglycerides 121 Cholesterol 204 LDL Cholesterol, Calc 148 HDL Cholesterol 32 Urine Color Urine Appearance Urine pH Ur Specific [place] Urine Protein Urine Glucose (UA) Urine Ketones Urine Blood Urine Nitrite Ur Leukocyte Esterase Quality Stroke Does the patient have a stroke diagnosis?: Yes Reason for No Anti-thrombotic by Day Two: N/A - Med Ordered VTE Prior VTE?: No VTE Risk Level:: Medical - moderate - high VTE Device Contraindication: Treatment Not Indicated VTE Drug Contraindication: N/A - Med Ordered Assessment and Plan (1) Lacunar infarction: Status: Acute (2) Dizziness: Status: Acute (3) HTN (hypertension): Status: Acute (4) Asthma: Status: Acute Assessment and Plan: 50-year-old female with past medical history of hypertension and asthma presents to the hospital with complaints of dizziness and shortness of breath found to have subacute to chronic strokes # acute to subacute lacunar infarct - patient complaining of persistent dizziness, left sided numbness and heaviness and right eye blurred vision, CT head showed Left basal ganglia lacunar infarcts, one of which appears old. 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 Gutierrez he recommend outpatient MRI study to rule out demyelinating disease and agree with above treatment Patient seen by Dr. Adair he recommend repeat brain imaging study to follow-up on intracranial pathology and outpatient neuro surgical eval as needed Patient seen by Occupational therapy they are recommending home with services # asthma exacerbation - shortness of breath improved, lungs are clear, continue IV Solu for 1 more day and transition to by mouth tomorrow, no hypoxia , change updraft to q.i.d. patient not on steroid inhalers at home Continue Spiriva # dizziness - most likely secondary to acute stroke, right eye blurred vision, continue supportive care, no nystagmus noted/OT # HTN - elevated blood pressure, will resume her home meds amlodipine 10 mg, and metoprolol XL 25 mg daily hold chlorthalidone 25 mg DVT prophylaxis:lovenox
[2020-10-07] MEDS: Metoprolol Succinate ER 25 MG TAB.ER.24H PO (15:52)
--- NOTE | 2020-10-07 23:52 | CA_ITS ---
Transthoracic Echocardiogram Patient (Last, First, Middle): Alexandria Vallejo, Gender: Female Date of : 1970 Age: 50 Procedure Date: 10/07/2020 Procedure Type: Transthoracic Echocardiogram Location: [facility] Height: 152.4 cm Weight: 102.06 kg BSA: 1.96 m2 Heart Rate: bpm BP: 167 / 78 mmHg Dominatrix: Referring MD: Matteo Huizar MD Symptoms: stroke Study Quality: Fair ECG Rhythm: Sinus Conclusions: - The left ventricular systolic function is normal. The visually estimated ejection fraction is between 60-65%. - No obvious valvular pathology seen on this study. - Interatrial shunt cannot be excluded. If clinically indicated, consider bubble study. Findings Left Ventricle Normal left ventricular cavity size. There is mildly increased left ventricular wall thickness. The left ventricular systolic function is normal. The visually estimated ejection fraction is between 60-65%. There is no evidence of regional wall motion abnormalities. E/E prime ratio is between 8 and 15 consistent with indeterminate filling pressures. Evidence suggests grade I (mild) diastolic dysfunction. Right Ventricle Normal right ventricular cavity size and systolic function. Atria Both atria are normal in size. Interatrial shunt cannot be excluded. Aortic Valve There is a normal trileaflet aortic valve. There is no aortic valve stenosis. There is no aortic valve regurgitation. Mitral Valve There is mild mitral annular calcification. There is no mitral valve regurgitation. There is no mitral valve stenosis. Pulmonic Valve The pulmonic valve was not well visualized. Tricuspid Valve The tricuspid valve was not well visualized. There is trace tricuspid valve regurgitation. The pulmonary artery systolic pressure is normal. Great Vessels The aortic annulus, sinuses of valsalva, and asc aorta are normal in size. Venous The inferior vena cava is normal in size and collapses greater than 50% with inspiration. Pericardium/Pleural There is no evidence of pericardial effusion. Prior Study Comparison No prior study available for comparison. Recommendations, Care & Conclusions No obvious valvular pathology seen on this study. Measurements 2D Linear Measurements IVSd: 1.23 0.6-0.9/0.6-1.0 cm LVIDd: 4.84 3.9-5.3/4.2-5.9 cm LVIDd Index: 2.47 2.4-3.2/2.2-3.1 cm/m2 LVIDs: 2.49 2.0-3.6 cm LVPWd: 1.23 0.7-1.1 cm Ao Root: 3.20 2.1-3.5 cm LA Diam: 3.70 2.7-3.8/3.0-4.0 cm LAIDs Index: 1.89 1.5-2.3 cm/m2 LV Mass: 286.66 67-162/88-224 g LV Mass Index: 146.26 43-95/49-115 g/m2 LVOT Diam: 2.30 3.0+(-)1.3 cm 2D Systolic Function EF 4C: 66.00 >55% EF 2C: 49.40 >55% EF BiP: 57.90 >55% Mitral Valve MV Pk E: 0.75 MV PK A: 1.20 MV Decel Time: 105.00 E/A: 0.60 E'Lateral: 7.29 E'Medial: 4.57 E/E' Med: 16.40 E/E' Lat: 10.30 PHT: 31.00 MVA PHT: 7.10 Decel Ventura: 7.11 Aortic Valve AoV Pk Diomedes: 1.42 AoV Mn Diomedes: 1.02 AoV VTI: 0.29 AoV Pk Grad: 8.00 Aov Mn Grad: 5.00 FORREST Cont.VTI: 2.66 LVOT LVOT Pk Diomedes: 0.94 LVOT Mn Diomedes: 0.64 LVOT VTI: 0.19 LVOT Pk Grad: 4.00 LVOT Mn Grad: 2.00 LVOT Diam: 2.30 LVOT Area: 4.15 Diastolic Function MV Pk E: 0.75 MV Pk A: 1.20 E/A: 0.60 E'Medial: 4.57 E/E' Med: 16.40 E' Laterial: 7.29 E/E' Lat: 10.30 Tricuspid Valve TR Pk Diomedes: 2.12 TR Pk Grad: 18.00 Great Vessels Aorta Ao Root-2D: 3.20 2.0-3.7 cm Ao Asc: 3.50 2.1-3.4 cm Pulmonary Valve PV Pk Diomedes: 1.24 Peak PV Grad: 6.00 Updated in Other Vendor System with Status of Final Frank Smith MD electronically signed on 10/07/2020 2:05:44 PM with status of Final
[2020-10-08] VITALS (7 sets, daily range): BP systolic 114–160; BP diastolic 69–80; PULSE 61–68; RESP 18–20; TEMP 36.1–37; O2SAT 94–95
[2020-10-08] MEDS: Enoxaparin Sodium 40 MG/0.4 ML SYRINGE SUBCUT (07:44)
[2020-10-08] MEDS: Albuterol/Iprat 2.5/0.5MG 3 ML AMPUL.NEB INHALE ×2 (08:07→11:25)
[2020-10-08] MEDS: Aspirin Enteric Coated 81 MG TABLET.DR PO (10:10)
[2020-10-08] MEDS: Atorvastatin Calcium 40 MG TABLET PO (10:10)
[2020-10-08] MEDS: Metoprolol Succinate ER 25 MG TAB.ER.24H PO (10:10)
[2020-10-08] MEDS: methylPREDNISolone Sod Succ 40 MG/ML VIAL IVPUSH (12:06)
--- NOTE | 2020-10-08 12:51 | W.MHC.F2F ---
Service Date Service Date: 10/08/20 Encounter Date of encounter: 10/08/20 Reasons for Services Signs and symptoms assessed: dizziness Reason for senior living: neurological assessment, medication management and medication treatment Reason for physical therapy: home safety and mobility, therapeutic exercises, gait/transfer training, assess need for DME, ADL training and energy conservation MD Overseeing Care: Grayson Zelaya Homebound: Leaving the home is medically contraindicated at this time without the asist of a device and/or another person due th the listed conditions above and below. Reason homebound: unsteady gait / fall risk Certification: Based on the above findings, I certify that this patient is confined to the home and needs intermittent senior living care, physical therapy and/or speech therapy, or continues to need occupational therapy. The patient is under my care, and I have initiated the establishment of the plan of care. The patient will be followed by a physician who will periodically review the plan of care.
--- NOTE | 2020-10-08 13:03 | PM.DS ---
DS: Providers Provider Date of Service: 10/08/20 Date of admission: 10/06/20 21:43 Primary care physician: Grayson Zelaya MD, [facility] Consults: 10/06/20 23:52 Consult to Neurology Routine Consulting Provider: [facility] Reason for consultation: subacute stroke Has provider been notified: Yes 10/07/20 10:28 Consult to Vascular Surgery Routine Consulting Provider: Adair Adair Reason for consultation: left GARDEN WORKER stenosis Has provider been notified: No DS: Diagnosis Discharge Diagnosis (1) Lacunar infarction: Status: Acute (2) Dizziness: Status: Acute (3) Asthma exacerbation: Status: Acute DS: Medications Discharge Medications Home Medications: Home Medications Medication Instructions Recorded Confirmed Spiriva with HandiHaler 1 cap INHALATION DAILY 10/07/20 10/07/20 acetaminophen 650 mg PO Q8H PRN 10/07/20 10/07/20 albuterol sulfate [ProAir HFA] 2 puff INHALATION Q4H PRN 10/07/20 10/07/20 amlodipine 10 mg PO BEDTIME 10/07/20 10/07/20 chlorthalidone 25 mg PO DAILY 10/07/20 10/07/20 ibuprofen 600 mg PO TID PRN 10/07/20 10/07/20 metoprolol succinate 25 mg PO DAILY 10/07/20 10/07/20 Previous Rx's Medication Instructions Recorded aspirin 81 mg PO DAILY #30 tab 10/08/20 atorvastatin 40 mg PO DAILY #30 tab 10/08/20 prednisone 40 mg PO DAILY #4 tab 10/08/20 DS: Summary Hospital Course Hospital Course: from admission H+P by hospitalist Matteo Huizar, 10/06/20: This is a 50-year-old female with past medical history of asthma and hypertension who presents to the hospital with complaints of shortness of breath and dizziness that started about 3 days ago. Patient reports the dizziness started 3 days ago and it is all the time, not related to position. Denies any headache but does report that her vision seems of on the right eye. Patient is also coughing for the past few days, and short of breath. Patient reports chronic cough as well as dyspnea but has worsened over the past 2-3 days. Denies any fever, no chills, she is producing some phlegm with no chest pain, no abdominal pain nausea or vomiting, no diarrhea constipation, no urinary symptoms and no lower extremity edema. She denies any specific weakness in her limbs but reports numbness and tingling on the left lower and upper extremity as well as decreased are. Decreased vision on the right eye. Patient denies having any slurred speech or noticing any change in her speech, daughter at bedside confirms the same. No facial drooping. Patient vitals significant for temp of 97.8?, heart rate of 87, respiratory rate of 20, satting 90% on room air. Blood pressure 141/86 Labs generally are unremarkable Head CT on arrival showed left basal ganglia lacunar infarct, 1 of which appears old the other to maybe more recent, CTA head and neck showed no evidence of acute intracranial hemorrhage or edematous territorial infarction, moderate underlying microangiopathy, lacunar infarcts of the left greater than the right lentiform nuclei and left quad 8 body remain age indeterminate CT of the head and neck without proximal occlusion, moderate multifocal irregular stenosis of the P1 to P3 segments of the left GARDEN WORKER Patient was planned for MRI but she does not fit in our machine due to her weight. The patient was admitted with dizzines and dyspnea. CT of the head showed likely chronic or possibly subacute basal ganglia infarcts on a background of microangiopathy. She was started on aspirin and atorvastatin for secondary prevention. LDL was 148. Neurology evaluated the patient and recommended MRI to rule out demyelinating disease; the MRI could not be done at this hospital due to the patient's girth. Therefore, outpatient open MRI should be arranged through the patient's primary care office. Outpatient neurosurgical consultation should be considered as well, per our vascular surgeon, for the CTA finding of multifocal irregular stenoses of the P1-P3 segments of the left GARDEN WORKER. She was seen by PT and OT and outpatient services through [facility] were arranged. As for her dyspnea, she was treated with a glucocorticoid burst for asthma exacerbation and will take 2 more days of oral prednisone upon discharge home. She was discharged home with [facility] services once her symptoms improved. The importance of good blood pressure control was counseled. She was advised not to return to work until she is seen by her primary care doctor. Time Spent with Patient Time attestation: Total time spent providing and/or coordinating discharge services: 35 Discharge coordination time: Greater than 30 minutes Quality: Stroke Does the patient have a stroke diagnosis?: Yes Reason for No Anti-thrombotic at NH: N/A - Med Ordered Reason for No Anticoagulant at DC: N/A - Med Ordered Reason Not Initiating IV-Tpa: Drug treatment not indicated Reason for No Anti-thrombotic by Day Two: N/A - Med Ordered Reason for No Statin at DC: N/A - Med Ordered Physical Exam Vital Signs: Vital Signs: Last Vital Signs Temp 96.9 F 10/08/20 10:56 Pulse 68 10/08/20 11:26 Resp 19 10/08/20 10:56 BP 160/80 H 10/08/20 10:56 Pulse Ox 95 10/08/20 10:56 Body Mass Index 43.9 Gen: in no acute distress HEENT: sclera anicteric, moist mucus membranes Neck: supple Lungs: clear to auscultation bilaterally Heart: regular rate and rhythm, no murmurs Abd: soft, obese, non-tender, non-distended Ext: no edema Skin: warm/well-perfused Neuro: alert and oriented x3, no facial droop, no pronator drift, no focal weakness Psych: appropriate affect DS: Data Data Completed and Pending Completed studies during hospitalization [Text1]: Laboratory Results WBC 7.8 X10*3/uL (4.8-10.8) 10/07/20 00:40 RBC 4.41 X10*6/uL (4.20-5.50) 10/07/20 00:40 Hgb 12.3 g/dl (12.0-16.0) 10/07/20 00:40 Hct 37.5 % (37-47) 10/07/20 00:40 MCV 85.0 fL (80-98) 10/07/20 00:40 MCH 27.9 pg (27.0-33.0) 10/07/20 00:40 MCHC 32.8 g/dl (31.0-35.0) 10/07/20 00:40 RDW 14.1 % (11.0-16.0) 10/07/20 00:40 Plt Count 251 X10*3/uL (160-400) 10/07/20 00:40 MPV 10.3 fL (9.4-12.3) 10/07/20 00:40 Immature Gran % (Auto) 0.3 % (0.0-0.4) 10/07/20 00:40 Neut % (Auto) 57.8 % (45-73) 10/07/20 00:40 Lymph % (Auto) 32.6 % (20-40) 10/07/20 00:40 [place] % (Auto) 7.1 % (2-11) 10/07/20 00:40 Eos % (Auto) 1.3 % (0-4) 10/07/20 00:40 Baso % (Auto) 0.9 % (0-2) 10/07/20 00:40 Lymph # (Auto) 2.5 X10*3/uL (1.2-4.9) 10/07/20 00:40 [place] # (Auto) 0.6 X10*3/uL (0.1-1.2) 10/07/20 00:40 Eos # (Auto) 0.1 X10*3/uL (0.0-0.4) 10/07/20 00:40 Baso # (Auto) 0.1 X10*3/uL (0.0-0.2) 10/07/20 00:40 Abs Immat Gran (auto) 0.02 X10*3/uL (0.00-0.03) 10/07/20 00:40 Absolute Neuts (auto) 4.5 X10*3/uL (2.0-8.3) 10/07/20 00:40 Absolute Nucleated RBC 0.000 X10*3/uL (0.0-0.012) 10/07/20 00:40 Nucleated RBC % (auto) 0.0 /100WBC (0.0-0.2) 10/07/20 00:40 PT 12.9 SEC (10.8-13.0) 10/06/20 14:17 INR 1.1 (0.9-1.1) 10/06/20 14:17 D-Dimer < 200 NG/ML 10/06/20 14:17 Sodium 140 mmol/L (135-145) 10/07/20 00:40 Potassium 3.3 mmol/L (3.3-5.1) 10/07/20 00:40 Chloride 106 mmol/L (96-108) 10/07/20 00:40 Carbon Dioxide 26 mmol/L (22-29) 10/07/20 00:40 Anion Gap 11 (12-20) L 10/07/20 00:40 BUN 15 mg/dL (9-16) 10/07/20 00:40 Creatinine 0.75 mg/dL (0.5-1.4) 10/07/20 00:40 Estim Creat Clear Calc 96.5 10/07/20 00:40 Estimated GFR > 60 10/07/20 00:40 Random Glucose 119 mg/dL (60-115) H 10/07/20 00:40 Calcium 8.3 mg/dL (8.4-10.2) L D 10/07/20 00:40 Magnesium 1.9 mg/dL (1.6-2.6) 10/06/20 14:17 Total Bilirubin 0.3 mg/dL (0.0-1.0) 10/06/20 14:17 AST 14 U/L (5-31) 10/06/20 14:17 ALT 18 U/L (0-31) 10/06/20 14:17 Alkaline Phosphatase 76 U/L (39-117) 10/06/20 14:17 Troponin I High Sens 3.9 ng/L (<3.5-17.0) 10/06/20 14:17 B-Natriuretic Peptide 15 pg/mL (<100) 10/06/20 14:17 Total Protein 7.4 g/dL (6.5-8.0) 10/06/20 14:17 Albumin 4.0 g/dL (3.5-5.0) 10/06/20 14:17 Triglycerides 121 mg/dL 10/07/20 05:49 Cholesterol 204 mg/dL 10/07/20 05:49 LDL Cholesterol, Calc 148 mg/dl 10/07/20 05:49 HDL Cholesterol 32 mg/dL 10/07/20 05:49 Urine Color YELLOW 10/06/20 18:06 Urine Appearance CLEAR 10/06/20 18:06 Urine pH 5.5 (5.0-8.0) 10/06/20 18:06 Ur Specific Ina >= 1.030 (1.005-1.025) H 10/06/20 18:06 Urine Protein NEG MG/DL (NEG-TRACE) 10/06/20 18:06 Urine Glucose (UA) NEG MG/DL (NEG) 10/06/20 18:06 Urine Ketones NEG MG/DL (NEG) 10/06/20 18:06 Urine Blood NEG (NEG) 10/06/20 18:06 Urine Nitrite NEG (NEG) 10/06/20 18:06 Ur Leukocyte Esterase NEG (NEG) 10/06/20 18:06 COVID-19 (LUPE) Negative (Negative) 10/06/20 12:15 COVID-19 Clin Com See Note 10/06/20 12:15 Impressions Chest X-Ray 10/06/20 12:23 IMPRESSION: Unremarkable chest x-ray. Head CT 10/06/20 15:16 IMPRESSION: Left basal ganglia lacunar infarcts, one of which appears old. The other 2 may be more recent. This could be better assessed with brain MRI if clinically indicated. Nonspecific periventricular white matter disease. Head/Neck CTA 10/06/20 19:13 IMPRESSION: 1. No evidence of acute intracranial hemorrhage or edematous territorial infarction. 2. Moderate underlying microangiopathy. Lacunar infarcts of the left greater than right lentiform nuclei and left caudate body remain age-indeterminate. 3. CTA of the head and neck without proximal occlusion. Moderate multifocal irregular stenoses of the P1-P3 segments of the left GARDEN WORKER. TTE 10/07/20 - The left ventricular systolic function is normal. The visually estimated ejection fraction is between 60-65%. - No obvious valvular pathology seen on this study. - Interatrial shunt cannot be excluded. If clinically indicated, consider bubble study. Discharge Plan Discharge Patient Disposition: Home Health Service Discharge Diagnosis: subacute stroke asthma exacerbation Referrals: Grayson Zelaya MD [Physician] - 1 Week Jewels Correa MD [Physician] - 1 Month Discharge Medications: New atorvastatin 40 mg Tablet 40 mg PO DAILY Qty: 30 RF: 0 aspirin 81 mg Tablet,Delayed Release (Dr/Ec) 81 mg PO DAILY Qty: 30 RF: 0 prednisone 20 mg tablet 40 mg PO DAILY Qty: 4 RF: 0 Continued Spiriva with HandiHaler 18 mcg Capsule, W/Inhalation Device 1 cap INHALATION DAILY RF: 0 chlorthalidone 25 mg Tablet 25 mg PO DAILY RF: 0 amlodipine 10 mg Tablet 10 mg PO BEDTIME RF: 0 metoprolol succinate 25 mg Tablet Extended Release 24 Hr 25 mg PO DAILY RF: 0 acetaminophen 650 mg Tablet Extended Release 650 mg PO Q8H PRN (Reason: Pain (Scale Score 1-3)) RF: 0 ibuprofen 600 mg Tablet 600 mg PO TID PRN (Reason: Pain (Scale Score 1-3)) RF: 0 albuterol sulfate [ProAir HFA] 90 mcg/actuation Hfa Aerosol Inhaler 2 puff INHALATION Q4H PRN (Reason: Respiratory Distress) RF: 0 Discharge Orders: Discharge Order (Routine); Ordered 10/08/20 Ordered By: Kraig Francisco Diet: diabetic diet and low salt diet Activity on Discharge: As tolerated Stand Alone Forms: Patient Portal Discharge page, Work/School Release Print Language: Armenian Other Ambulatory Orders: MR head/brain wo con (Routine) Timeframe: 1 Week Facility: [facility] - Location: MRI Ordered By: Kraig Francisco Care Plan Goals: workup of subacute/chronic stroke and prevention of future strokes workup of carotid stenosis recovery from dizziness resolution of asthma exacerbation Health Concerns: subacute/chronic strokes cerebrovascular disease dizziness asthma exacerbation Plan of Treatment: take aspirin 81 mg daily and atorvastatin 40 mg daily; outpatient MRI of the brain (will need open MRI due to BMI) outpatient Neurosurgery evaluation home PT take prednisone 40 mg daily for 2 more days see your primary care doctor in 1 week Assessment: as above Patient Instructions: Chest Pain (ED), Dizziness (ED)
--- NOTE | 2020-10-08 14:17 | PC.NURSE ---
safety engineer pressure vessels to bedside for patient discharge. She has been ambulatory in no distress, denies any pain. She states she will follow with her PCP as directed and will return for any concerning SX or pain. Pt to exit via wheelchair
== END 2020-10-08 14:18 | disposition home health service (06) | DRG 45 ==
LOC: HO.ED 19:14 → HO.EDOVER 22:12 → HO.IMC 23:17
PROVIDERS: Physician Assistant Medical; Admitting Provider Internal Medicine; Emergency Provider Emergency Medicine; Visit Provider Family Medicine
DX: I63.81 Other cerebral infarction due to occlusion or stenosis of small artery (principal); J45.901 Unspecified asthma with (acute) exacerbation; I10 Essential (primary) hypertension; R20.0 Anesthesia of skin; E66.9 Obesity, unspecified; Z68.41 Body mass index [BMI] 40.0-44.9, adult; Z20.822 Contact with and (suspected) exposure to COVID-19; Z79.1 Long term (current) use of non-steroidal anti-inflammatories (NSAID); Z79.82 Long term (current) use of aspirin; Z79.899 Other long term (current) drug therapy
CPT/HCPCS: 36415; 70450; 70496; 70498; 71046; 80048; 80053; 80061; 81003; 83735; 83880; 84484; 85025; 85379; 85610; 87635; 93005; 93306; 94640; 97161; 97165; 99285; J1650; J2920; Q9967

== ENCOUNTER 2020-10-17 20:29 | Observation (INO) | payer MEDICAID, SELFPAY ==
--- NOTE | ~2020-10-17 | XR_ITS ---
EXAMINATION: XR CHEST CLINICAL INFORMATION: Tachycardia/syncope COMPARISON: None TECHNIQUE: Frontal view of the chest was obtained. FINDINGS: No significant abnormality is noted involving the heart, lungs, mediastinum, bony thorax or soft tissues. XR/XR chest 1V IMPRESSION: Unremarkable chest exam.
[2020-10-17 20:47] VITALS: BP 157/78; PULSE 111; RESP 18; TEMP 36.8; O2SAT 94; BMI 53.4
--- NOTE | 2020-10-17 20:54 | ECG_ITS ---
Test Reason : SYNCOPE Blood Pressure : / mmHG Vent. Rate : 106 BPM Atrial Rate : 106 BPM P-R Int : 170 ms QRS Dur : 102 ms QT Int : 386 ms P-R-T Axes : 034 007 049 degrees QTc Int : 512 ms Sinus tachycardia Nonspecific ST abnormality Abnormal ECG When compared with ECG of 06-OCT-2020 14:34, Nonspecific T wave abnormality no longer evident in Anterior leads QT has lengthened Referred By: Generic ED Physician Electronically Signed By:ANAI MEEKS MD
[2020-10-17 21:21] LABS: MANUAL DIFF FLAG NO
[2020-10-17 21:30] LABS: Basophils Percent Auto 0.3 % (0-2); Eosinophils Percent Auto 0.2 % (0-4); Hematocrit 38.7 % (37-47); Hemoglobin 12.9 g/dl (12.0-16.0); Imm Gran Abs Auto 0.05 X10*3/uL (0.00-0.03); Imm Gran Pct Auto 0.4 % (0.0-0.4); Lymphocytes Absolute Auto 2.6 X10*3/uL (1.2-4.9); Lymphocytes Percent Auto 20.2 % (20-40); Mean Corpuscular HGB Conc 33.3 g/dl (31.0-35.0); Mean Corpuscular Hemoglobin 27.9 pg (27.0-33.0); Mean Corpuscular Volume 83.6 fL (80-98); Mean Platelet Volume 10.2 fL (9.4-12.3); Monocytes Absolute Auto 0.8 X10*3/uL (0.1-1.2); Neutrophils Absolute Auto 9.5 X10*3/uL (2.0-8.3); Neutrophils Percent Auto 72.9 % (45-73); Platelet Count 239 X10*3/uL (160-400); Red Blood Count 4.63 X10*6/uL (4.20-5.50); Red Cell Distribution Width 14.2 % (11.0-16.0)
[2020-10-17 21:50] LABS: Troponin-I High Sensitivity 7.4 ng/L (<3.5-17.0)
[2020-10-17 21:51] LABS: Anion Gap 14 (12-20); Blood Urea Nitrogen 18 mg/dL (9-16); Calcium 9.2 mg/dL (8.4-10.2); Carbon Dioxide 27 mmol/L (22-29); Chloride 99 mmol/L (96-108); Creatinine Clr Calc Pharmacy 91.9; Estimated Glomerular Filt Rate > 60; Glucose Random 172 mg/dL (60-115); Potassium 2.7 mmol/L (3.3-5.1); Sodium 137 mmol/L (135-145)
[2020-10-18] VITALS (13 sets, daily range): BP systolic 104–143; BP diastolic 56–84; PULSE 74–99; RESP 16–20; TEMP 36.3–37.1; O2SAT 95–99
[2020-10-18 00:01] LABS: Magnesium 1.9 mg/dL (1.6-2.6)
[2020-10-18] MEDS: Potassium Chloride Packet 20 MEQ PACKET 40 MEQ PO (00:08)
[2020-10-18] MEDS: Potassium Chloride/H20 10 MEQ/100 ML PIGGYBACK 100 MEQ IV ×3 (00:08→08:25)
--- NOTE | 2020-10-18 00:55 | ED_ITS ---
HPI - Syncope General Chief Complaint: Syncope Stated Complaint: DIZZINESS Time Seen by Provider: 10/17/20 23:44 History of Present Illness HPI narrative: 50-year-old female presents today with having 2 episodes of near-syncope. No chest pain. Patient was going to the back from the 1st time felt lightheaded. Almost passed out. Patient denies any chest pain with these episodes. No diaphoresis. Spontaneously recovered. She does have a history of Lacunar infarcts. History of hypertension. positive fever. No coughing or congestion or upper respiratory symptoms. Patient had her coronavirus vaccine. Denies noticing any blood in the stool. No new changes to medication. Positive weakness associated with the symptoms. Related Data Home Medications Medication Instructions Recorded Confirmed Spiriva with HandiHaler 1 cap INHALATION DAILY 10/07/20 10/07/20 acetaminophen 650 mg PO Q8H PRN 10/07/20 10/07/20 albuterol sulfate [ProAir HFA] 2 puff INHALATION Q4H PRN 10/07/20 10/07/20 amlodipine 10 mg PO BEDTIME 10/07/20 10/07/20 chlorthalidone 25 mg PO DAILY 10/07/20 10/07/20 ibuprofen 600 mg PO TID PRN 10/07/20 10/07/20 metoprolol succinate 25 mg PO DAILY 10/07/20 10/07/20 Previous Rx's Medication Instructions Recorded aspirin 81 mg PO DAILY #30 tab 10/08/20 atorvastatin 40 mg PO DAILY #30 tab 10/08/20 prednisone 40 mg PO DAILY #4 tab 10/08/20 Allergies Allergy/AdvReac Type Severity Reaction Status Date / Time No Known Allergies Allergy Verified 10/17/20 20:47 [No Known Allergies*] Review of Systems Review of Systems: Constitutional: No Weight loss, No Fever, No Chills, No Night Sweats, No Fatigue, No Malaise ENT/Mouth: No Hearing loss, No Ear Pain, No Nasal Congestion, No Sinus Pain, No Hoarseness, No sore throat, No Rhinorrhea, No Swallowing Difficulty Eyes: No Eye Pain, No Swelling, No Redness, No Foreign Body, No Discharge, No Vision Changes Cardiovascular: No Chest Pain, No SOB, No Dyspnea on Exertion, No Orthopnea, No Edema, No Palpitations Respiratory: No Cough, No Sputum, No Wheezing, No Smoke Exposure, No Dyspnea Gastrointestinal: No Nausea, No Vomiting, No Diarrhea, No Constipation, No abd ominal Pain, No Hematochezia, No Melena Genitourinary: no irregular bleeding, No Dysuria, No Urinary Frequency, No Hematuria, No Urinary Incontinence, No Urgency, No Flank Pain, No Urinary Flow Changes, No Hesitancy Musculoskeletal: No joint pain, No Myalgias, No Joint Swelling Skin: No Skin Lesions, No rash Neuro: No Weakness, No Numbness, No Paresthesias, No Loss of Consciousness, No Dizziness, No Headache Psych: No Anxiety/Panic, No Depression, No SI/HI/AH/VH, No Social Issues, Heme/Lymph: No Bruising, No Bleeding,No Lymphadenopathy Endocrine: No Polyuria, No Polydipsia, No Temperature Intolerance [facility] Past Medical History Attestation statement: The following information was validated with the patient. Medical History Asthma Asthma exacerbation Dizziness HTN (hypertension) Lacunar infarction Social History Social History Household Members: Spouse Housing: Apartment Do you presently have visiting nurse or other home services: No Patient Tobacco Use Status: Never used Tobacco Advance Directives: Yes Advance Directives on File: Yes Advance Directives Date on File: 10/07/20 Patient : No service: No Current occupational status: employed Physical Exam Vital Signs: Vital Signs: Last Vital Signs Temp 98.3 F 10/17/20 20:47 Pulse 111 H 10/17/20 20:47 Resp 18 10/17/20 20:47 BP 157/78 H 10/17/20 20:47 Pulse Ox 94 10/17/20 20:47 Body Mass Index 53.4 Appearance: Alert. Oriented X3. No acute distress. Eyes: Pupils equal, round and reactive to light. ENT: Pharynx normal. Neck: Normal inspection. Neck supple. No lymph nodes noted. No crepitus CVS: Normal heart rate and rhythm. Pulses normal. Normal S1 and S2 Respiratory: No respiratory distress. Breath sounds normal. No Wheezing. No rales Abdomen: Soft and nontender. No rigidity. No distention. good BS x4 Skin: Skin warm and dry. Normal skin color. Normal skin turgor. Extremities: No lower extremity edema. Neurovascular intact to all extremities. No Lacerations. No Rash Neuro: Oriented X 3. No motor deficit. No sensory deficit. Moving all extermities. No slurred speech MDM - Syncope MDM Narrative Medical decision making narrative: Positive near syncope x2. Patient's electrolytes also showed a potassium of 2.7. will replete potassium as much as possible. A magnesium was added. Positive syncopal episode we require monitoring. Currently in stable condition. Lab Data Result diagrams: 10/17/20 21:16 10/17/20 21:16 Labs: Lab Results 10/17/20 10/17/20 10/17/20 Range/Units 21:16 21:16 21:16 WBC 13.0 H (4.8-10.8) X10*3/uL RBC 4.63 (4.20-5.50) X10*6/uL Hgb 12.9 (12.0-16.0) g/dl Hct 38.7 (37-47) % MCV 83.6 (80-98) fL MCH 27.9 (27.0-33.0) pg MCHC 33.3 (31.0-35.0) g/dl RDW 14.2 (11.0-16.0) % Plt Count 239 (160-400) X10*3/uL MPV 10.2 (9.4-12.3) fL Immature Gran % (Auto) 0.4 (0.0-0.4) % Neut % (Auto) 72.9 (45-73) % Lymph % (Auto) 20.2 (20-40) % [place] % (Auto) 6.0 (2-11) % Eos % (Auto) 0.2 (0-4) % Baso % (Auto) 0.3 (0-2) % Lymph # (Auto) 2.6 (1.2-4.9) X10*3/uL [place] # (Auto) 0.8 (0.1-1.2) X10*3/uL Eos # (Auto) 0.0 (0.0-0.4) X10*3/uL Baso # (Auto) 0.0 (0.0-0.2) X10*3/uL Abs Immat Gran (auto) 0.05 H (0.00-0.03) X10*3/uL Absolute Neuts (auto) 9.5 H (2.0-8.3) X10*3/uL Absolute Nucleated RBC 0.000 (0.0-0.012) X10*3/uL Nucleated RBC % (auto) 0.0 (0.0-0.2) /100WBC Sodium 137 (135-145) mmol/L Potassium 2.7 L (3.3-5.1) mmol/L Chloride 99 (96-108) mmol/L Carbon Dioxide 27 (22-29) mmol/L Anion Gap 14 (12-20) BUN 18 H (9-16) mg/dL Creatinine 0.89 (0.5-1.4) mg/dL Estim Creat Clear Calc 91.9 Estimated GFR > 60 Random Glucose 172 H D (60-115) mg/dL Calcium 9.2 D (8.4-10.2) mg/dL Magnesium 1.9 (1.6-2.6) mg/dL Troponin I High Sens 7.4 D (<3.5-17.0) ng/L ECG Data Interpretation: EKG showed a sinus pattern heart rate is 100 MA QRS QT within Normal limits no ST segment elevation noted. Diffuse T-wave flattening noted. Discharge Plan Discharge Clinical Impression: Near syncope Prescriptions: No Action Spiriva with HandiHaler 18 mcg Capsule, W/Inhalation Device 1 cap INHALATION DAILY RF: 0 chlorthalidone 25 mg Tablet 25 mg PO DAILY RF: 0 amlodipine 10 mg Tablet 10 mg PO BEDTIME RF: 0 metoprolol succinate 25 mg Tablet Extended Release 24 Hr 25 mg PO DAILY RF: 0 acetaminophen 650 mg Tablet Extended Release 650 mg PO Q8H PRN (Reason: Pain (Scale Score 1-3)) RF: 0 ibuprofen 600 mg Tablet 600 mg PO TID PRN (Reason: Pain (Scale Score 1-3)) RF: 0 albuterol sulfate [ProAir HFA] 90 mcg/actuation Hfa Aerosol Inhaler 2 puff INHALATION Q4H PRN (Reason: Respiratory Distress) RF: 0 atorvastatin 40 mg Tablet 40 mg PO DAILY Qty: 30 RF: 0 aspirin 81 mg Tablet,Delayed Release (Dr/Ec) 81 mg PO DAILY Qty: 30 RF: 0 prednisone 20 mg tablet 40 mg PO DAILY Qty: 4 RF: 0
[2020-10-18 03:29] LABS: COVID-19 Test Negative (Negative); IDNOW Serial# 9DD0AD1C
--- NOTE | 2020-10-18 05:35 | PC.NURSE ---
REPORT GIVEN TO FLOOR. PT TO FLOOR IN STRETCHER IN NAD. WILL CONTINUE TO MONITOR PT.
--- NOTE | 2020-10-18 06:18 | PM.IMHP ---
History of Present Illness Date of Service: 10/18/20 Chief Complaint: syncope 50-year-old female with past medical history of CVA who presents the hospital syncopal episode. Information obtained with the help of ecommerce analyst. Patient reports that around 3:00 p.m. she was outside all day, was sitting down, got of felt dizzy and shortly after had a syncopal episode. Patient also reports that she recovered after a minute or 2, but then around 8:00 p.m. developed similar episode and she was also unconscious for few minutes. patient reports palpitations and dizziness prior to each episode. She denies any seizure-like activity, denies any postictal state, worse that she was out all day, did not hydrate well, but denies any headache, change in vision, reports chronic blurry vision of right eye, denies any abdominal pain nausea or vomiting, no diarrhea constipation, no urinary symptoms and no lower extremity edema. Orthostatic vitals done in the ED are negative except for heart rate that increased by 10 beats per minute after standing, otherwise vitals unremarkable Labs are significant for WBC count of 13 , potassium of 2.7, labs otherwise unremarkable EKG shows sinus tachycardia of heart rate of 106, QT of 512, chest x-ray negative patient will be admitted for observation Review of Systems Review of Systems: Yes all other systems are reviewed and are negative [facility] Medical History Asthma Asthma exacerbation Dizziness HTN (hypertension) Lacunar infarction Social History Household Members: Spouse Housing: Apartment Do you presently have visiting nurse or other home services: No Patient Tobacco Use Status: Never used Tobacco Advance Directives: Yes Advance Directives on File: Yes Advance Directives Date on File: 10/07/20 Patient : No service: No Current occupational status: employed Meds Allergies Allergy/AdvReac Type Severity Reaction Status Date / Time No Known Allergies Allergy Verified 10/17/20 20:47 [No Known Allergies*] Active Medications: Current Medications Generic Name Dose Route Start Last Admin Trade Name Freq PRN Reason Stop Dose Admin Acetaminophen 650 mg 10/18/20 05:29 Acetaminophen 325 Mg Tablet PO Q6H PRN Pain, Mild (Pain Scale 1-3) Docusate Sodium 100 mg 10/18/20 05:29 Docusate Sodium 100 Mg Capsule PO DAILY PRN Constipation Ondansetron HCl 4 mg 10/18/20 05:29 Ondansetron Hcl 4 Mg/2 Ml Vial IVPUSH Q8H PRN Nausea and Vomiting Sodium Chloride 3 ml 10/18/20 08:00 0.9 % Sodium Chloride Flush 3 Ml Syringe IVFLUSH QSHIFT [facility] Home Medications Medication Instructions Recorded Confirmed Last Taken Type Spiriva with HandiHaler 1 cap INHALATION DAILY 10/07/20 10/18/20 Unknown History amlodipine 10 mg PO BEDTIME 10/07/20 10/18/20 Unknown History chlorthalidone 25 mg PO DAILY 10/07/20 10/18/20 Unknown History metoprolol succinate 25 mg PO DAILY 10/07/20 10/18/20 Unknown History Physical Exam Vital Signs and Narrative: Vital Signs: Last Vital Signs Temp 98.3 F 10/17/20 20:47 Pulse 81 10/18/20 05:29 Resp 16 10/18/20 05:29 BP 130/56 L 10/18/20 05:29 Pulse Ox 98 10/18/20 05:29 Body Mass Index 53.4 Const: General: cooperative and no acute distress Orientation/consciousness: patient oriented x3 Eyes: General: appearance normal, both eyes and all related structures Resp: Effort & Inspection: normal respiratory effort and able to speak in complete sentences Auscultation: clear to auscultation bilaterally Cardio: Rate: regular rate Rhythm: regular rhythm GI: Palpation (GI): Soft to palpation Auscultation: normal bowel sounds Skin: General skin exam: no rashes or lesions noted Neuro: General: patient oriented x3 Cognition (Neuro): normal cognition Extrem: General: Yes normal to inspection and Yes no pedal edema Results Labs CBC and Chem 7: 10/17/20 21:16 10/17/20 21:16 Labs: Laboratory Results - last 24 hr 10/17/20 10/17/20 10/17/20 21:16 21:16 21:16 MCV 83.6 MCH 27.9 MCHC 33.3 RDW 14.2 Plt Count 239 MPV 10.2 Immature Gran % (Auto) 0.4 Neut % (Auto) 72.9 Lymph % (Auto) 20.2 Pender % (Auto) 6.0 Eos % (Auto) 0.2 Baso % (Auto) 0.3 Lymph # (Auto) 2.6 [place] # (Auto) 0.8 Eos # (Auto) 0.0 Baso # (Auto) 0.0 Abs Immat Gran (auto) 0.05 H Absolute Neuts (auto) 9.5 H Absolute Nucleated RBC 0.000 Nucleated RBC % (auto) 0.0 Anion Gap 14 Estim Creat Clear Calc 91.9 Estimated GFR > 60 Random Glucose 172 H D Calcium 9.2 D Magnesium 1.9 Troponin I High Sens 7.4 D COVID-19 ([facility]) COVID-19 Clin Com 10/18/20 02:48 MCV MCH MCHC RDW Plt Count MPV Immature Gran % (Auto) Neut % (Auto) Lymph % (Auto) Pender % (Auto) Eos % (Auto) Baso % (Auto) Lymph # (Auto) Pender # (Auto) Eos # (Auto) Baso # (Auto) Abs Immat Gran (auto) Absolute Neuts (auto) Absolute Nucleated RBC Nucleated RBC % (auto) Anion Gap Estim Creat Clear Calc Estimated GFR Random Glucose Calcium Magnesium Troponin I High Sens COVID-19 ([facility]) Negative COVID-19 Clin Com See Note Imaging Radiologist's Impressions: Impressions Chest X-Ray 10/17/20 20:54 IMPRESSION: Unremarkable chest exam. Assessment and Plan (1) Syncope: Status: Acute (2) History of CVA (cerebrovascular accident): Status: Acute (3) Prolonged QT interval: Status: Acute (4) Hypokalemia: Status: Acute 50-year-old female with recent CVA who presents to the hospital syncopal episodes # syncope - possibly vasovagal Versus cardiac in the setting of prolonged QT as well as low potassium - had an echocardiogram done on October 07 after having acute CVA that showed ejection fraction of 60-65% with no evidence of wall motion abnormality, and grade 1 diastolic dysfunction. - Orthostatic vitals negative - at this time will admit for observation - may need a 30 day event monitor on discharge # Hypokalemia - no evidence of GI losses - patient refusing p.o. potassium replacement - will replace by IV - follow BMP # prolonged QT - will check for magnesium - replete potassium - repeat EKG prior to discharge - will avoid QT prolonging medications # hypertension - continue amlodipine and chlorthalidone as well as metoprolol # CVA - med list does not include statin or aspirin? - although on discharge neurology recommended antiplatelet, as well as statin to be continued - will order both DVT prophylaxis: Early ambulation Quality Stroke Does the patient have a stroke diagnosis?: No VTE Prior VTE?: No VTE Risk Level:: Medical - low VTE Device Contraindication: Treatment Not Indicated VTE Drug Contraindication: Treatment Not Indicated
[2020-10-18] MEDS: Metoprolol Succinate ER 25 MG TAB.ER.24H PO (08:21)
[2020-10-18] MEDS: hydroCHLOROthiazide 50 MG TABLET PO (08:21)
[2020-10-18] MEDS: Aspirin Enteric Coated 81 MG TABLET.DR PO (08:21)
[2020-10-18] MEDS: 0.9 % Sodium Chloride Flush 3 ML SYRINGE IVFLUSH ×2 (08:23→16:36)
[2020-10-18 12:25] LABS: Potassium 2.8 mmol/L (3.3-5.1)
--- NOTE | 2020-10-18 12:52 | MHC.CM.PN ---
Addendum entered by Frances Noel 10/18/20 12:55: PCP IS JONNATHAN LOPEZ AT [facility] Original Note: CM MET WITH PT WITH THE ASSISTANCE OF A EXPRESSIVE ART THERAPIST. PT REPORTS SHE LIVES AT HOME WITH HER S/O AND IS INDEPENDENT WITH CARE AND MOBILITY. PT DENIES THE USE OF DME OR HOME SERVICES. PT REPORTS SHE DOES NOT KNOW THE NAME OF HER PCP BUT SEES SOMEONE ON [facility]. OBS NOTICE DELIVERED CURRENT DC PLAN IS HOME WITH NO SERVICES PT WILL ARRANGE TRANSPORT
--- NOTE | 2020-10-18 13:04 | PM.EVENT ---
Event Note Date of Service: 10/18/20 Event Note: patient seen examined history and physical reviewed patient offers no acute complaints of lightheadedness dizziness chest pain, no palpitation resting comfortably is having discomfort at iv site since potassium is being administered exam benign syncope continue tele monitor, replace potassium follow EKG due to prolonged QT, low-potassium likely due to hydrochlorothiazide, will need replacement therapy upon discharge. Will DC IV potassium due to discomfort at IV site and switched to by mouth.mg 1.9
[2020-10-18] MEDS: Potassium Chloride ER 20 MEQ TAB.ER.PRT PO (14:34)
--- NOTE | 2020-10-18 15:56 | PC.NURSE ---
Skin assessment completed today. No skin issues found, skin dry and intact. All documentation matches.
[2020-10-18 17:46] LABS: Potassium 3.1 mmol/L (3.3-5.1)
[2020-10-18] MEDS: amLODIPine Besylate 10 MG TABLET PO (21:00)
[2020-10-18] MEDS: Atorvastatin Calcium 40 MG TABLET PO (21:01)
[2020-10-19] VITALS (9 sets, daily range): BP systolic 106–135; BP diastolic 56–86; PULSE 62–96; RESP 15–20; TEMP 36–36.9; O2SAT 94–99
[2020-10-19] MEDS: Potassium Chloride ER 20 MEQ TAB.ER.PRT 40 MEQ PO (00:13)
[2020-10-19] MEDS: 0.9 % Sodium Chloride Flush 3 ML SYRINGE IVFLUSH ×4 (00:17→20:29)
[2020-10-19 07:01] LABS: MANUAL DIFF FLAG NO
[2020-10-19 07:23] LABS: Basophils Percent Auto 0.5 % (0-2); Eosinophils Absolute Auto 0.1 X10*3/uL (0.0-0.4); Eosinophils Percent Auto 0.7 % (0-4); Hematocrit 37.2 % (37-47); Imm Gran Abs Auto 0.03 X10*3/uL (0.00-0.03); Imm Gran Pct Auto 0.4 % (0.0-0.4); Lymphocytes Absolute Auto 2.5 X10*3/uL (1.2-4.9); Lymphocytes Percent Auto 30.8 % (20-40); Mean Corpuscular HGB Conc 32.3 g/dl (31.0-35.0); Mean Corpuscular Hemoglobin 28.3 pg (27.0-33.0); Mean Corpuscular Volume 87.7 fL (80-98); Mean Platelet Volume 10.8 fL (9.4-12.3); Monocytes Absolute Auto 0.7 X10*3/uL (0.1-1.2); Monocytes Percent Auto 8.2 % (2-11); Neutrophils Absolute Auto 4.9 X10*3/uL (2.0-8.3); Neutrophils Percent Auto 59.4 % (45-73); Platelet Count 202 X10*3/uL (160-400); Red Blood Count 4.24 X10*6/uL (4.20-5.50); Red Cell Distribution Width 14.5 % (11.0-16.0); White Blood Count 8.2 X10*3/uL (4.8-10.8)
[2020-10-19 07:58] LABS: Anion Gap 12 (12-20); Blood Urea Nitrogen 12 mg/dL (9-16); Calcium 8.6 mg/dL (8.4-10.2); Carbon Dioxide 26 mmol/L (22-29); Chloride 102 mmol/L (96-108); Creatinine Clr Calc Pharmacy 118.5; Estimated Glomerular Filt Rate > 60; Glucose Random 118 mg/dL (60-115); Potassium 3.1 mmol/L (3.3-5.1); Sodium 137 mmol/L (135-145)
[2020-10-19] MEDS: Metoprolol Succinate ER 25 MG TAB.ER.24H PO (08:51)
[2020-10-19] MEDS: hydroCHLOROthiazide 50 MG TABLET PO (08:51)
[2020-10-19] MEDS: Aspirin Enteric Coated 81 MG TABLET.DR PO (08:51)
[2020-10-19] MEDS: Potassium Chloride ER 20 MEQ TAB.ER.PRT 60 MEQ PO (09:16)
--- NOTE | 2020-10-19 13:21 | P.PNIM_ITS ---
Subjective Subjective Date of Service: 10/20/20 Interval History: patient complaining of dizziness, complaining of right eye visual symptoms since her prior stroke, denies any new headache, no visual symptoms, no weakness or numbness. General no headache , no fever chills. CVS no chest pain, no palpitation. Respiratory no cough no sob. Gastrointestinal no nausea, no vomiting, no abdominal pain Physical Exam Vital Signs: Vital Signs: Last Vital Signs Temp 97.1 F 10/19/20 11:01 Pulse 85 10/19/20 11:01 Resp 20 10/19/20 11:01 BP 135/72 10/19/20 11:01 Pulse Ox 95 10/19/20 11:01 Body Mass Index 53.4 General resting comfortably in no acute distress. Neck supple no JVD. CVS regular rate rhythm, Respiratory lungs clear to auscultation, no respiratory distress, no wheeze, no rhonchi. Gastrointestinal abdomen obese,soft, nontender, bowel sounds audible, no guarding , no rigidity. Extremities no edema. Neuro nonfocal, speech clear. Skin no rash Objective Data Current Medications Generic Name Dose Route Start Last Admin Trade Name Freq PRN Reason Stop Dose Admin Acetaminophen 650 mg 10/18/20 05:29 Acetaminophen 325 Mg Tablet PO Q6H PRN Pain, Mild (Pain Scale 1-3) Amlodipine Besylate 10 mg 10/18/20 21:00 10/18/20 21:00 Amlodipine Besylate 10 Mg Tablet PO 10 mg BEDTIME JAQUELIN Administration Protocol Aspirin 81 mg 10/18/20 09:00 10/19/20 08:51 Aspirin Enteric Coated 81 Mg Tablet.Dr PO 81 mg DAILY JAQUELIN Administration Atorvastatin Calcium 40 mg 10/18/20 21:00 10/18/20 21:01 Atorvastatin Calcium 40 Mg Tablet PO 40 mg BEDTIME JAQUELIN Administration Docusate Sodium 100 mg 10/18/20 05:29 Docusate Sodium 100 Mg Capsule PO DAILY PRN Constipation Hydrochlorothiazide 25 mg 10/20/20 09:00 Hydrochlorothiazide 25 Mg Tablet PO DAILY JAQUELIN Metoprolol Succinate 25 mg 10/18/20 09:00 10/19/20 08:51 Metoprolol Succinate Er 25 Mg Tab.Er.24h PO 25 mg DAILY JAQUELIN Administration Protocol Sodium Chloride 3 ml 10/18/20 08:00 10/19/20 07:09 0.9 % Sodium Chloride Flush 3 Ml Syringe IVFLUSH 3 ml QSHIFT JAQUELIN Administration Tiotropium [place] 1 puff 10/18/20 09:00 10/19/20 07:42 Tiotropium [place] 18 Mcg Cap.W.Dev INHALE 1 puff DAILY JAQUELIN Administration Labs CBC & Chem 7: 10/19/20 06:16 10/20/20 05:40 Labs: Laboratory Results - last 24 hr 10/18/20 10/19/20 10/19/20 17:05 06:16 06:16 WBC 8.2 RBC 4.24 Hgb 12.0 Hct 37.2 MCV 87.7 MCH 28.3 MCHC 32.3 RDW 14.5 Plt Count 202 MPV 10.8 Immature Gran % (Auto) 0.4 Neut % (Auto) 59.4 Lymph % (Auto) 30.8 [place] % (Auto) 8.2 Eos % (Auto) 0.7 Baso % (Auto) 0.5 Lymph # (Auto) 2.5 [place] # (Auto) 0.7 Eos # (Auto) 0.1 Baso # (Auto) 0.0 Abs Immat Gran (auto) 0.03 Absolute Neuts (auto) 4.9 Absolute Nucleated RBC 0.000 Nucleated RBC % (auto) 0.0 Sodium 137 Potassium 3.1 L 3.1 L Chloride 102 Carbon Dioxide 26 Anion Gap 12 BUN 12 Creatinine 0.69 Estim Creat Clear Calc 118.5 Estimated GFR > 60 Random Glucose 118 H Calcium 8.6 D Quality Stroke Does the patient have a stroke diagnosis?: No VTE Prior VTE?: No VTE Risk Level:: Medical - low VTE Device Contraindication: Treatment Not Indicated VTE Drug Contraindication: Treatment Not Indicated Assessment and Plan (1) Hypokalemia: Status: Acute (2) Prolonged QT interval: Status: Acute (3) History of CVA (cerebrovascular accident): Status: Acute Assessment and Plan: 50-year-old female with recent CVA who presents to the hospital syncopal episodes # syncope question etiology, no arrhythmia noted, normal orthostatic studies - had an echocardiogram done on October 07 after having acute CVA that showed ejection fraction of 60-65% with no evidence of wall motion abnormality, and grade 1 diastolic dysfunction. may need a 30 day event monitor on discharge # Hypokalemia likely due to diuretics, will aggressively replace and follow potassium # prolonged QT likely due to low potassium, magnesium level within normal range follow EKG closely, no arrhythmia on tele monitor # hypertension blood pressure is stable continue amlodipine and metoprolol and will lower dose of hydrochlorothiazide to 12.5 mg # CVA history of recent CVA, started on statin and aspirin, CT head from October 07 showed left basal ganglia lacunar infarction 1 appears hold the other 2 seems recent and MRI study was recommended as outpatient, but since patient with episode of syncope recurrent dizziness and with concern of demyelinating disease will obtain an MRI study with and without contrast DVT prophylaxis: Early ambulation of note MRI study was not done since patient did not fit into the MRI machine will recommend outpatient MRI study
[2020-10-19] MEDS: Potassium Chloride ER 20 MEQ TAB.ER.PRT PO (13:54)
--- NOTE | 2020-10-19 15:02 | MHC.CM.PN ---
Female 50 DX Syncope. Pt scheduled for MRI today. DP home no services family transport
[2020-10-19] MEDS: Atorvastatin Calcium 40 MG TABLET PO (20:28)
[2020-10-19] MEDS: amLODIPine Besylate 10 MG TABLET PO (20:28)
[2020-10-20 03:21] VITALS: BP 135/83; PULSE 88; RESP 20; TEMP 36.8; O2SAT 96
[2020-10-20 07:34] LABS: Anion Gap 12 (12-20); Blood Urea Nitrogen 13 mg/dL (9-16); Calcium 8.6 mg/dL (8.4-10.2); Carbon Dioxide 27 mmol/L (22-29); Chloride 101 mmol/L (96-108); Creatinine Clr Calc Pharmacy 122.1; Estimated Glomerular Filt Rate > 60; Glucose Random 119 mg/dL (60-115); Potassium 3.2 mmol/L (3.3-5.1); Sodium 137 mmol/L (135-145)
[2020-10-20 08:00] VITALS: BP 141/80; PULSE 79; RESP 20; TEMP 36; O2SAT 96
--- NOTE | 2020-10-20 08:00 | ECG_ITS ---
Test Reason : prolong qtc Blood Pressure : / mmHG Vent. Rate : 090 BPM Atrial Rate : 090 BPM P-R Int : 160 ms QRS Dur : 090 ms QT Int : 396 ms P-R-T Axes : 034 012 066 degrees QTc Int : 484 ms Normal sinus rhythm Prolonged QT Abnormal ECG No previous ECGs available Referred By: Gia Muse Electronically Signed By:NAAI MEEKS MD
[2020-10-20 08:11] VITALS: PULSE 78; O2SAT 95
[2020-10-20] MEDS: Aspirin Enteric Coated 81 MG TABLET.DR PO (08:15)
[2020-10-20] MEDS: hydroCHLOROthiazide 25 MG TABLET PO (08:15)
[2020-10-20] MEDS: Potassium Chloride ER 20 MEQ TAB.ER.PRT PO (08:15)
[2020-10-20 08:16] VITALS: BP 141/80
[2020-10-20] MEDS: Metoprolol Succinate ER 25 MG TAB.ER.24H PO (08:16)
[2020-10-20] MEDS: 0.9 % Sodium Chloride Flush 3 ML SYRINGE IVFLUSH (08:16)
[2020-10-20] MEDS: Potassium Chloride ER 20 MEQ TAB.ER.PRT 40 MEQ PO (08:40)
--- NOTE | 2020-10-20 11:14 | MHC.CM.PN ---
Female 50 Dx Syncope Pt is discharged to home no services. She will follow up outpt for MRI. She is too large for MRI @ [facility]. Family will provide transportation to home.
--- NOTE | 2020-10-20 11:30 | P.DS_ITS ---
DS: Providers Provider Date of Service: 10/20/20 Date of admission: 10/18/20 00:59 Primary care physician: [facility] DS: Diagnosis Discharge Diagnosis (1) Hypokalemia: Status: Acute (2) Prolonged QT interval: Status: Acute (3) History of CVA (cerebrovascular accident): Status: Acute DS: Medications Discharge Medications Home Medications: Home Medications Medication Instructions Recorded Confirmed Spiriva with HandiHaler 1 cap INHALATION DAILY 10/07/20 10/18/20 amlodipine 10 mg PO BEDTIME 10/07/20 10/18/20 metoprolol succinate 25 mg PO DAILY 10/07/20 10/18/20 Previous Rx's Medication Instructions Recorded hydrochlorothiazide 12.5 mg PO DAILY #30 tab 10/20/20 potassium chloride [Klor-Con M20] 20 meq PO DAILY #30 tab 10/20/20 DS: Summary Hospital Course Hospital Course: history of presenting illness Chief Complaint: syncope 50-year-old female with past medical history of CVA who presents the hospital syncopal episode. Information obtained with the help of metal mold dresser. Patient reports that around 3:00 p.m. she was outside all day, was sitting down, got of felt dizzy and shortly after had a syncopal episode. Patient also reports that she recovered after a minute or 2, but then around 8:00 p.m. developed similar episode and she was also unconscious for few minutes. patient reports palpitations and dizziness prior to each episode. She denies any seizure-like activity, denies any postictal state, worse that she was out all day, did not hydrate well, but denies any headache, change in vision, reports chronic blurry vision of right eye, denies any abdominal pain nausea or vomiting, no diarrhea constipation, no urinary symptoms and no lower extremity edema. Orthostatic vitals done in the ED are negative except for heart rate that increased by 10 beats per minute after standing, otherwise vitals unremarkable Labs are significant for WBC count of 13 , potassium of 2.7, labs otherwise unremarkable EKG shows sinus tachycardia of heart rate of 106, QT of 512, chest x-ray negative hospital course 50-year-old female with recent CVA who presents to the hospital with syncopal episode, patient was admitted to telemetry unit, she had normal orthostatic studies tele monitor showed no arrhythmia, recent echocardiogram done on October 07 after having acute CVA showed ejection fraction of 60-65% with no evidence of wall motion abnormality, and grade 1 diastolic dysfunction, patient had no new neurological deficit, patient EKG showed prolonged QTC which did improve with potassium replacements, due to recurrent episodes of dizziness and syncope ordered 30 day cardiac event recorder. and MRI study was attempted but patient did not fit into the MRI machine, patient has an outpatient MRI study scheduled for next week, recommended patient to have close outpatient follow-up with PCP further treatment plan after above studies. Patient noted to have significant Hypokalemia likely due to diuretics, potassium was aggressively repleted she has been recommended to follow lytes in 1 week in regard to hypertension blood pressure is stable recommend to continue amlodipine and metoprolol and will lower dose of hydrochlorothiazide to 12.5 mg status post recent CVA continue statin and aspirin morbid obesity strongly recommend to lose weight exercise and follow a low- calorie diet. Time Spent with Patient Time attestation: Total time spent providing and/or coordinating discharge services: Discharge coordination time: Greater than 30 minutes Quality: Stroke Does the patient have a stroke diagnosis?: No Physical Exam Vital Signs: Vital Signs: Last Vital Signs Temp 96.8 F 10/20/20 08:00 Pulse 78 10/20/20 08:11 Resp 20 10/20/20 08:00 BP 141/80 H 10/20/20 08:16 Pulse Ox 96 10/20/20 08:00 Body Mass Index 53.4 General resting comfortably in no acute distress. Neck supple no JVD. CVS regular rate rhythm, Respiratory lungs clear to auscultation, no respiratory distress, no wheeze, no rhonchi. Gastrointestinal abdomen obese,soft, nontender, bowel sounds audible, no guarding , no rigidity. Extremities no edema. Neuro nonfocal, speech clear. Skin no rash DS: Data Data Completed and Pending Labs on day of discharge: Laboratory Results - last 24 hr 10/20/20 05:40 Sodium 137 Potassium 3.2 L Chloride 101 Carbon Dioxide 27 Anion Gap 12 BUN 13 Creatinine 0.67 Estim Creat Clear Calc 122.1 Estimated GFR > 60 Random Glucose 119 H Calcium 8.6 Discharge Plan Discharge Patient Disposition: Home, Self-Care Discharge Diagnosis: syncope hypokalemia prolonged QTC Referrals: [facility] [Primary Care Provider] - 1 Week Discharge Medications: New hydrochlorothiazide 12.5 mg tablet 12.5 mg PO DAILY Qty: 30 RF: 0 potassium chloride [Klor-Con M20] 20 mEq Tablet,Er Particles/Crystals 20 meq PO DAILY Qty: 30 RF: 0 Continued Spiriva with HandiHaler 18 mcg Capsule, W/Inhalation Device 1 cap INHALATION DAILY RF: 0 amlodipine 10 mg Tablet 10 mg PO BEDTIME RF: 0 metoprolol succinate 25 mg Tablet Extended Release 24 Hr 25 mg PO DAILY RF: 0 Discontinued chlorthalidone 25 mg Tablet 25 mg PO DAILY RF: 0 Discharge Orders: Discharge Order (Routine); Ordered 10/20/20 Ordered By: Gia Muse Diet: advance to usual diet and low fat, low cholesterol Activity on Discharge: As tolerated Stand Alone Forms: Patient Portal Discharge page Other Ambulatory Orders: Electrolytes (Routine) Timeframe: 1 Week Facility: [facility] - Location: Laboratory Ordered By: Gia Muse Care Plan Goals: syncope /dizziness strongly recommend to have outpatient MRI study previously scheduled and also to go to Cardiology for 30 day event recorder that has been ordered Health Concerns: strongly recommend weight reduction exercise and continue all medications as before dose of hydrochlorothiazide has been reduced to 12.5 and potassium supplement has been added follow BMP as out patient in 1 week Plan of Treatment: follow-up with primary care physician in 1 week Assessment: as above
== END 2020-10-20 13:04 | disposition home or self-care (01) ==
LOC: HO.ED 23:09 → HO.EDOVER 10-18 04:03 → HO.IMC 10-18 04:25
PROVIDERS: Admitting Provider Internal Medicine; Emergency Provider Emergency Medicine Emergency Medical Services; Visit Provider Hospitalist
DX: R55 Syncope and collapse (principal); E87.6 Hypokalemia; I45.81 Long QT syndrome; I63.81 Other cerebral infarction due to occlusion or stenosis of small artery; I10 Essential (primary) hypertension; J45.901 Unspecified asthma with (acute) exacerbation; E66.01 Morbid (severe) obesity due to excess calories; Z68.43 Body mass index [BMI] 50.0-59.9, adult; Z86.73 Personal history of transient ischemic attack (TIA), and cerebral infarction without residual deficits; Z79.82 Long term (current) use of aspirin; Z79.52 Long term (current) use of systemic steroids; Z79.899 Other long term (current) drug therapy
CPT/HCPCS: 36415; 71045; 80048; 83735; 84132; 84484; 85025; 87635; 93005; 94640; 96365; 96366; 99219; 99284; 99285